=== PATIENT | female | born 2000 | race Caucasian/White ===

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

== ENCOUNTER 2021-06-24 19:44 | Emergency (ER) | payer BC, OTHER ==
[2021-06-24 20:13] VITALS: TEMP 98.4
[2021-06-24] MEDS ORDERED: IBUPROFEN 600 MG TAB PO STA (20:45)
[2021-06-24] MEDS ORDERED: ACETAMINOPHEN TAB 325 MG TAB PO STA (20:45)
--- NOTE | 2021-06-24 21:01 | ED ---
Upper Extremity HPI - General Chief Complaint: Extremity Injury, Upper Stated Complaint: IHS-L finger injury Time Seen by Provider: 06/24/21 20:24 Source: patient, family Mode of arrival: ambulatory Limitations: no limitations - History of Present Illness Initial Comments: 21 year-old female patient presents to the emergency department for evaluation of left little finger injury. States she was at work when a resident grabbed her finger and twisted it. States she has had limited range of motion, pain, and burning in the finger since. Denies taking anything for pain. Denies previous injury to this finger. Denies any chance of . - Related Data Home Medications Medication Instructions Recorded Confirmed Albuterol Inhaler [Ventolin Hfa 2 puff INHALATION RT-QID PRN 01/15/20 01/17/20 Inhaler] Previous Rx's Medication Instructions Recorded Acetaminophen Tab [Tylenol] 650 mg PO Q4HR PRN tab 01/20/20 Ibuprofen [Motrin] 600 mg PO TID PRN tab 01/20/20 Vortioxetine Hydrobromide 10 mg PO DAILY 30 Days tablet 01/20/20 [Trintellix] busPIRone HCL [Buspar] 7.5 mg PO BID 30 Days tab 01/20/20 Albuterol Sulfate [Proair Hfa] 1 - 2 puff INHALATION Q4HR PRN #1 11/09/20 inhaler Dexamethasone 6 mg PO DAILY #5 tablet 11/09/20 Ibuprofen [Motrin] 600 mg PO Q8HR PRN #30 tab 06/24/21 Allergies Allergy/AdvReac Type Severity Reaction Status Date / Time latex Allergy Rash/Hives Verified 06/24/21 20:12 Review of Systems ROS Statement: Those systems with pertinent positive or pertinent negative responses have been documented in the HPI. ROS Other: All systems not noted in ROS Statement are negative. Past Medical History Past Medical History: Asthma History of Any Multi-Drug Resistant Organisms: None Reported Past Surgical History: Adenoidectomy, Tonsillectomy Additional Past Surgical History / Comment(s): Kanine teeth exposure for braces, IUD, Past Anesthesia/Blood Transfusion Reactions: No Reported Reaction Past Psychological History: Anxiety, Depression Smoking Status: Never smoker Past Alcohol Use History: None Reported Past Drug Use History: None Reported - Past Family History Mother Family Medical History: No Reported History Father Additional Family Medical History / Comment(s): colon cancer General Exam Limitations: no limitations General appearance: alert, in no apparent distress, other (This is a well- developed, well-nourished adult female patient in no acute distress. ) Respiratory exam: Present: normal lung sounds bilaterally. Absent: respiratory distress, wheezes, rales, rhonchi, stridor Cardiovascular Exam: Present: regular rate, normal rhythm, normal heart sounds. Absent: systolic murmur, diastolic murmur, rubs, gallop, clicks Neurological exam: Present: alert, oriented X3, CN II-XII intact Psychiatric exam: Present: normal affect, normal mood Skin exam: Present: warm, dry, intact, normal color. Absent: rash Course Vital Signs 06/24/21 06/24/21 20:08 22:00 Temperature 98.4 F Pulse Rate 90 88 Respiratory 22 16 Rate Blood Pressure 114/80 120/72 O2 Sat by Pulse 98 98 Oximetry Medical Decision Making - Medical Decision Making 21-year-old female patient presents to the emergency department today for evaluation of injury to the left little finger. 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 X-ray was obtained and was negative. Did discuss sprain as a cause for her symptoms are related yamilet tape. She is instructed to decrease use of the finger for the next week. Given ibuprofen for pain. Return parameters were discussed in detail. She verbalizes understanding and agrees with this plan. My attending is Dr. Salas. - Radiology Data Radiology results: report reviewed, image reviewed X-ray of the left little finger was obtained. Report was reviewed in its entirety. Impression by Dr. Kumar shows no acute fracture dislocation the left hand fifth digit. Disposition Clinical Impression: Sprain of left little finger Disposition: HOME SELF-CARE Condition: Good Instructions (If sedation given, give patient instructions): Finger Sprain (ED) Additional Instructions: Rest, ice, elevate the finger. Limit use of the left hand for one week. Take tylenol and motrin for pain control. Follow up with primary care physician for recheck in 1-2 days. Return for any new, worsening, or concerning symptoms. Prescriptions: Ibuprofen [Motrin] 600 mg PO Q8HR PRN #30 tab PRN Reason: Pain Is patient prescribed a controlled substance at d/c from ED?: No Referrals: Dean Hunt MD [Primary Care Provider] - 1-2 days Time of Disposition: 22:09
--- NOTE | 2021-06-24 21:39 | XR ---
EXAMINATION TYPE: XR finger LT DATE OF EXAM: 06/24/2021 CLINICAL HISTORY: Left little finger injury. TECHNIQUE: Frontal, lateral and oblique coned-down views of the fifth digit of the left hand are obt ained. COMPARISON: None FINDINGS: There is no acute fracture/dislocation evident. The joint spaces appear within normal encarnacion its. Normal osseous mineralization. The overlying soft tissue appears unremarkable. IMPRESSION: No acute fracture or dislocation in the left hand fifth digit.
[2021-06-24 22:08] VITALS: BP 120/72; PULSE 88; RESP 16
== END 2021-06-24 22:31 | disposition home or self-care (01) ==
LOC: EC 19:44
DX: S63.617A Unspecified sprain of left little finger, initial encounter (principal); J45.909 Unspecified asthma, uncomplicated; Z91.040 Latex allergy status; W50.2XXA Accidental twist by another person, initial encounter; Y92.89 Other specified places as the place of occurrence of the external cause; Y99.0 Civilian activity done for income or pay
CPT/HCPCS: 99283

== ENCOUNTER → 2021-07-06 | Outpatient (CLI) | payer OTHER ==
--- NOTE | 2021-07-06 10:41 | XR ---
EXAMINATION TYPE: XR finger LT DATE OF EXAM: 07/06/2021 COMPARISON: NONE HISTORY: Pain TECHNIQUE: Three views are submitted. FINDINGS: The osseous structures are intact. The joint spaces are preserved and there is no acute fracture or dislocation. IMPRESSION: 1. No definite acute fracture or dislocation if symptoms persist, follow-up study in 7 to 10 days wo uld be suggested
== END | disposition home or self-care (01) ==
LOC: RADXRMAIN 10:06
PROVIDERS: ATTEND Emergency Medicine
DX: M79.645 Pain in left finger(s) (principal)

== ENCOUNTER → 2021-07-26 | Outpatient (CLI) | payer BC | END | disposition home or self-care (01) | LOC: RADECHMAIN 11:27 | PROVIDERS: ATTEND Family Medicine | DX: R07.9 Chest pain, unspecified (principal) | CPT/HCPCS: 93306 ==

== ENCOUNTER 2021-08-19 16:17 | Emergency (ER) | payer OTHER, BC ==
[2021-08-19 16:46] VITALS: BP 125/81; PULSE 100; RESP 20; TEMP 97.9
[2021-08-19] MEDS ORDERED: KETOROLAC 15 MG/ML 1 ML VIAL IM STA (17:10)
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
--- NOTE | 2021-08-19 18:28 | XR ---
PROCEDURE: XR forearm RT - 2V DATE AND TIME: 08/19/2021 5:40 PM CLINICAL INDICATION: PHH; pain TECHNIQUE: Department protocol COMPARISON: None FINDINGS: There is no fracture or malalignment. The soft tissues are unremarkable. IMPRESSION: NO ACUTE PROCESS.
--- NOTE | 2021-08-19 18:29 | XR ---
PROCEDURE: XR wrist complete RT - 4V DATE AND TIME: 08/19/2021 5:40 PM CLINICAL INDICATION: PHH; pain TECHNIQUE: Department protocol COMPARISON: 2001 FINDINGS: There is no fracture or malalignment. The soft tissues are unremarkable. IMPRESSION: NO ACUTE PROCESS.
== END 2021-08-19 19:02 | disposition home or self-care (01) ==
LOC: EC 16:17
DX: M25.531 Pain in right wrist (principal); V43.52XA Car driver injured in collision with other type car in traffic accident, initial encounter; J45.909 Unspecified asthma, uncomplicated; Z91.040 Latex allergy status; Y92.89 Other specified places as the place of occurrence of the external cause
CPT/HCPCS: 73090; 73110; 99284; 96372; J1885

== ENCOUNTER 2021-08-22 01:22 | Emergency (ER) | payer BC ==
[2021-08-22 01:35] VITALS: TEMP 98.6
--- NOTE | 2021-08-22 02:05 | XR ---
EXAMINATION TYPE: XR chest 2V DATE OF EXAM: 08/22/2021 COMPARISON: NONE HISTORY: Cough TECHNIQUE: 2 views FINDINGS: Heart and mediastinum are normal. Lungs are clear. Diaphragm is normal. Bony thorax is inta ct. IMPRESSION: Normal chest.
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
[2021-08-22 03:30] VITALS: BP 128/88; PULSE 89; RESP 16
== END 2021-08-22 03:29 | disposition home or self-care (01) ==
LOC: EC 01:22
DX: R04.2 Hemoptysis (principal); J45.909 Unspecified asthma, uncomplicated; Z91.040 Latex allergy status
CPT/HCPCS: 71046; 99283

== ENCOUNTER 2022-10-20 11:48 | Emergency (ER) | payer BC ==
[2022-10-20 12:19] VITALS: TEMP 98.1
[2022-10-20] MEDS ORDERED: SODIUM CHLORIDE 0.9% 1,000 ML IV STA (12:48)
[2022-10-20] MEDS ORDERED: PANTOPRAZOLE 40 MG/10 ML VIAL IVP STA (12:56)
[2022-10-20] MEDS ORDERED: ONDANSETRON 4 MG/2 ML VIAL IVP STA (12:56)
--- NOTE | 2022-10-20 13:00 | ED ---
General Adult HPI - General Chief complaint: Syncope Stated complaint: Vomiting,Syncope Time Seen by Provider: 10/20/22 12:26 Source: patient, RN notes reviewed, old records reviewed Mode of arrival: ambulatory Limitations: no limitations - History of Present Illness Initial comments: Patient is a 22-year-old female with past medical history that is unremarkable presents emergency Department complaining of multiple syncopal episodes at home this morning. Patient states that she drank some form of Gatorade this morning which then triggered having an "upset stomach" causing her to have multiple episodes of nonbilious normally emesis. She passed out 2 separate occasions this morning. Both shortly after blood episodes of emesis. States she felt dizzy beforehand, with tunnel vision. She was sitting down and would lay herself down on the bathroom floor and passed out. She is unknown how long she was passed out for. Denies any chest pain or shortness breath. Endorses some epigastric abdominal discomfort. Denies any current nausea. He presents today due to the multiple syncopal episodes. States that has not occurred previously. Physical history nosebleeds and had one earlier today as well. Denies any known history of clotting disorder. Has no other acute complaints at this time. Presents for further evaluation at this time. Denies any urinary complaints. Denies any vaginal discharge or bleeding. Does endorse an episode of nonbloody diarrhea. No known sick contacts. No fevers, no cough. - Related Data Home Medications Medication Instructions Recorded Confirmed levonorgestreL [Kyleena (IUD)] 1 implant VAGINAL [id number] 08/19/21 08/19/21 Previous Rx's Medication Instructions Recorded Ibuprofen [Motrin] 600 mg PO Q8HR PRN #30 tab 06/24/21 Ibuprofen [Motrin] 600 mg PO Q8HR PRN #30 tab 08/19/21 Ondansetron Odt [Zofran Odt] 4 mg PO Q8HR PRN 3 Days #9 tab 10/20/22 Allergies Allergy/AdvReac Type Severity Reaction Status Date / Time latex Allergy Rash/Hives Verified 10/20/22 12:19 Review of Systems ROS Statement: Those systems with pertinent positive or pertinent negative responses have been documented in the HPI. Review of Systems: CONST: Denies fever EYES: Denies blurry vision ENT: Denies nasal congestion C/V: Denies Chest pain RESP: Denies shortness of breath GI: Endorses abdominal pain : Denies dysuria SKIN: Denies rash. MSK: Denies joint pain. NEURO: Denies headache ROS Other: All systems not noted in ROS Statement are negative. Past Medical History Past Medical History: Asthma History of Any Multi-Drug Resistant Organisms: None Reported Past Surgical History: Adenoidectomy, Tonsillectomy Additional Past Surgical History / Comment(s): [place] teeth exposure for braces, IUD, Past Anesthesia/Blood Transfusion Reactions: No Reported Reaction Past Psychological History: Anxiety, Depression Smoking Status: Never smoker Past Alcohol Use History: None Reported Past Drug Use History: None Reported - Past Family History Mother Family Medical History: No Reported History Father Additional Family Medical History / Comment(s): colon cancer General Exam - General Exam Comments Initial Comments: General: Appears in no acute distress. HEAD: Normal with no signs of head trauma. Lehman sign. Negative raccoon eyes. EYES: PERRLA, EOMI, conjunctiva normal, no discharge. Pupils are 3 mm and equal bilaterally. ENT: Hearing grossly intact, normal oropharynx. Dry mucous membranes. RESPIRATORY: Clear breath sounds bilaterally. No wheezes, rales, or rhonchi. C/V: Regular rate and rhythm. S1 and S2 auscultated, no edema, peripheral pulses 2+ and intact throughout ABD: Abdomen is soft, nondistended. Mild tenderness to palpation epigastric. No guarding. No rebound tenderness. No peritoneal signs. EXT: Normal range of motion, no obvious deformity SKIN: No rashes or lesions observed on exposed skin. NEURO: Alert and oriented x 4. Cranial nerves II-XII intact. No focal sensory or strength deficits. GCS of 15. No focal deficits. Able to ambulate. Limitations: no limitations Course Vital Signs 10/20/22 10/20/22 10/20/22 12:16 13:57 15:24 Temperature 98.1 F Pulse Rate 100 90 94 Respiratory 20 16 18 Rate Blood Pressure 120/81 126/80 116/70 O2 Sat by Pulse 99 99 99 Oximetry Medical Decision Making - Medical Decision Making Was pt. sent in by a medical professional or institution (, PA, PHYSICIAN RELATIONS SPECIALIST, urgent care, hospital, or longterm...) When possible be specific @ -No Did you speak to anyone other than the patient for history (EMS, parent, family, police, friend...)? What history was obtained from this source @ -No Did you review nursing and triage notes (agree or disagree)? Why? @ -I reviewed and agree with nursing and triage notes Were old charts reviewed (outside hosp., previous admission, EMS record, old EKG, old radiological studies, urgent care reports/EKG's, longterm records)? Report findings @ -No old charts were reviewed Differential Diagnosis (chest pain, altered mental status, abdominal pain women, abdominal pain men, vaginal bleeding, weakness, fever, dyspnea, syncope, headache, dizziness, GI bleed, back pain, seizure, CVA, palpatations, mental health, musculoskeletal)? @ -Differential Syncope: Valvular disease, hypertrophic cardiomyopathy, pulmonary embolism, tamponade, tachycardia, bradycardia, [place], hypovolemia, hemorrhage, dissection, anemia, intracranial hemorrhage, seizure, hypoglycemia, carbon monoxide poisoning, this is not meant to be an all-inclusive list. EKG interpreted by me (3pts min.). @ -As above X-rays interpreted by me (1pt min.). @ -Chest x-ray reveals no obvious acute cardio pulmonary process. CT interpreted by me (1pt min.). @ -None done U/S interpreted by me (1pt. min.). @ -None done What testing was considered but not performed or refused? (CT, X-rays, U/S, labs)? Why? @ -None What meds were considered but not given or refused? Why? @ -None Did you discuss the management of the patient with other professionals (amanda ricci i.regino De León, PA, PHYSICIAN RELATIONS SPECIALIST, lab, RT, psych nurse, social insurance adviser, academic hospitalist, teacher, parcel post officer, home health care case manager)? Give summary @ -No Was smoking cessation discussed for >3mins.? @ -No Was critical care preformed (if so, how long)? @ -No Were there social determinants of health that impacted care today? How? (Homelessness, low income, unemployed, alcoholism, drug addiction, transportation, low edu. Level, literacy, decrease access to med. care, [facility], rehab)? @ -No Was there de-escalation of care discussed even if they declined (Discuss DNR or withdrawal of care, Hospice)? DNR status @ -No What co-morbidities impacted this encounter? (DM, HTN, Smoking, COPD, CAD, Cancer, CVA, ARF, Chemo, Hep., AIDS, mental health diagnosis, sleep apnea, morbid obesity)? @ -None Was patient admitted / discharged? Hospital course, mention meds given and route, prescriptions, significant lab abnormalities, going to OR and other pertinent info. @ -Based on the patient's presentation and physical exam, there is concern for syncopal episodes likely secondary to her nausea and vomiting episodes but cannot rule out other etiology at this time. Currently has no acute complaints other than mild epigastric abdominal pain. If that her baseline mental status. Did discuss obtaining labs as well as a chest x-ray and EKG and screening d- dimer. She was in agreement this plan. We will also obtain abdominal laboratory studies, signs. She'll be symptomatically treated with 2 L IV fluids as well as IV Zofran and Protonix. Vital signs within acceptable limits. Tyrel garcia was in agreement with this plan. EKG shows no signs of acute ischemia. Chest x-ray unremarkable. Laboratory studies are remarkable for a d-dimer that is undetectable. Patient is not . Patient's Covid, flu, RSV negative. Alleged lites are within acceptable limits. No other acute findings on labs. On reevaluation and patient is feeling improved. She is tolerating oral intake. His no other acute complaints at this time. She would like to go home. I believe this is reasonable. She will be discharged home at this time. Strict return precautions discussed. She'll be given a prescription for Zofran ODT. We discussed her workup. I will provide the patient with a prescription for Zofran ODT. I instructed the patient to follow up with their PCP in the next 1-3 days. I explained that the patient should return to the emergency department if they experience any worsening symptoms. Strict return precautions were discussed with the patient. The patient expressed understanding of these instructions. I answered all questions that the patient had. The patient was discharged home in good condition with their prescriptions and follow up information. Undiagnosed new problem with uncertain prognosis? @ -No Drug Therapy requiring intensive monitoring for toxicity (Heparin, Nitro, Insulin, Cardizem)? @ -No Were any procedures done? @ -No Diagnosis/symptom? @ -Nausea and vomiting Acute, or Chronic, or Acute on Chronic? @ -Acute Uncomplicated (without systemic symptoms) or Complicated (systemic symptoms)? @ -uncomplicated Side effects of treatment? @ -No Exacerbation, Progression, or Severe Exacerbation? @ -No Poses a threat to life or bodily function? How? (Chest pain, [place], [place], pneumonia, PE, COPD, DKA, ARF, appy, cholecystitis, CVA, Diverticulitis, Homicidal, Suicidal, threat to staff... and all critical care pts) @ -No Diagnosis/symptom? @ -Syncope Acute, or Chronic, or Acute on Chronic? @ -Acute Uncomplicated (without systemic symptoms) or Complicated (systemic symptoms)? @ -Uncomplicated Side effects of treatment? @ -none Exacerbation, Progression, or Severe Exacerbation] @ -no Poses a threat to life or bodily function? @ -no - Lab Data Result diagrams: 10/20/22 13:56 10/20/22 13:56 Lab Results 10/20/22 10/20/22 10/20/22 Range/Units 13:56 13:56 13:56 WBC 7.7 (3.8-10.6) k/uL RBC 4.16 (3.80-5.40) m/uL Hgb 13.4 (11.4-16.0) gm/dL Hct 38.4 (34.0-46.0) % MCV 92.4 (80.0-100.0) fL MCH 32.3 (25.0-35.0) pg MCHC 34.9 (31.0-37.0) g/dL RDW 12.1 (11.5-15.5) % Plt Count 217 (150-450) k/uL MPV 7.6 Neutrophils % 71 % Lymphocytes % 23 % Monocytes % 4 % Eosinophils % 1 % Basophils % 0 % Neutrophils # 5.5 (1.3-7.7) k/uL Lymphocytes # 1.8 (1.0-4.8) k/uL Monocytes # 0.3 (0-1.0) k/uL Eosinophils # 0.1 (0-0.7) k/uL Basophils # 0.0 (0-0.2) k/uL PT 10.6 (9.0-12.0) sec INR 1.0 (<1.2) APTT 27.1 (22.0-30.0) sec D-Dimer <0.17 (<0.60) mg/L FEU Sodium (137-145) mmol/L Potassium (3.5-5.1) mmol/L Chloride (98-107) mmol/L Carbon Dioxide (22-30) mmol/L Anion Gap mmol/L BUN (7-17) mg/dL Creatinine (0.52-1.04) mg/dL Est GFR (CKD-EPI)AfAm (>60 ml/min/1.73 sqM) Est GFR (CKD-EPI)NonAf (>60 ml/min/1.73 sqM) Glucose (74-99) mg/dL Calcium (8.4-10.2) mg/dL Magnesium (1.6-2.3) mg/dL Total Bilirubin (0.2-1.3) mg/dL AST (14-36) U/L ALT (4-34) U/L Alkaline Phosphatase (38-126) U/L Total Protein (6.3-8.2) g/dL Albumin (3.5-5.0) g/dL Lipase (23-300) U/L HCG, Qual Urine Color Yellow Urine Appearance Cloudy H (Clear) Urine pH 7.0 (5.0-8.0) Ur Specific [place] 1.022 (1.001-1.035) Urine Protein 1+ H (Negative) Urine Glucose (UA) Negative (Negative) Urine Ketones Negative (Negative) Urine Blood Negative (Negative) Urine Nitrite Negative (Negative) Urine Bilirubin Negative (Negative) Urine Urobilinogen <2.0 (<2.0) mg/dL Ur Leukocyte Esterase Negative (Negative) Urine RBC 1 (0-5) /hpf Urine WBC 1 (0-5) /hpf Ur Squamous Epith Cells 8 H (0-4) /hpf Urine Mucus Rare H (None) /hpf Influenza Type A (PCR) (Not Detectd) Influenza Type B (PCR) (Not Detectd) RSV (PCR) (Not Detectd) SARS-CoV-2 (PCR) (Not Detectd) 10/20/22 10/20/22 Range/Units 13:56 13:56 WBC (3.8-10.6) k/uL RBC (3.80-5.40) m/uL Hgb (11.4-16.0) gm/dL Hct (34.0-46.0) % MCV (80.0-100.0) fL MCH (25.0-35.0) pg MCHC (31.0-37.0) g/dL RDW (11.5-15.5) % Plt Count (150-450) k/uL MPV Neutrophils % % Lymphocytes % % Monocytes % % Eosinophils % % Basophils % % Neutrophils # (1.3-7.7) k/uL Lymphocytes # (1.0-4.8) k/uL Monocytes # (0-1.0) k/uL Eosinophils # (0-0.7) k/uL Basophils # (0-0.2) k/uL PT (9.0-12.0) sec INR (<1.2) APTT (22.0-30.0) sec D-Dimer (<0.60) mg/L FEU Sodium 138 (137-145) mmol/L Potassium 3.9 (3.5-5.1) mmol/L Chloride 102 (98-107) mmol/L Carbon Dioxide 29 (22-30) mmol/L Anion Gap 7 mmol/L BUN 10 (7-17) mg/dL Creatinine 0.72 (0.52-1.04) mg/dL Est GFR (CKD-EPI)AfAm >90 (>60 ml/min/1.73 sqM) Est GFR (CKD-EPI)NonAf >90 (>60 ml/min/1.73 sqM) Glucose 84 (74-99) mg/dL Calcium 9.1 (8.4-10.2) mg/dL Magnesium 1.8 (1.6-2.3) mg/dL Total Bilirubin 0.7 (0.2-1.3) mg/dL AST 22 (14-36) U/L ALT 15 (4-34) U/L Alkaline Phosphatase 65 (38-126) U/L Total Protein 7.1 (6.3-8.2) g/dL Albumin 4.5 (3.5-5.0) g/dL Lipase 49 (23-300) U/L HCG, Qual Not Detected Urine Color Urine Appearance (Clear) Urine pH (5.0-8.0) Ur Specific [place] (1.001-1.035) Urine Protein (Negative) Urine Glucose (UA) (Negative) Urine Ketones (Negative) Urine Blood (Negative) Urine Nitrite (Negative) Urine Bilirubin (Negative) Urine Urobilinogen (<2.0) mg/dL Ur Leukocyte Esterase (Negative) Urine RBC (0-5) /hpf Urine WBC (0-5) /hpf Ur Squamous Epith Cells (0-4) /hpf Urine Mucus (None) /hpf Influenza Type A (PCR) Not Detected (Not Detectd) Influenza Type B (PCR) Not Detected (Not Detectd) RSV (PCR) Not Detected (Not Detectd) SARS-CoV-2 (PCR) Not Detected (Not Detectd) - EKG Data -: EKG Interpreted by Me EKG Comments: 12-lead Electrocardiogram Interpretation Note EKG was reviewed and interpreted by myself. 12-lead ECG performed at 1408 is interpreted by me as revealing normal sinus rhythm at a rate of 71 beats per minute. [place] is normal. ND interval is 153 ms, QRS duration is 88 ms, QTc is 404 ms.. Isolated T-wave inversion in lead V2. No reciprocal changes. No other acute ST segment T-wave abnormalities to suggest acute ischemia.. R wave progression across the precordium was satisfactory. By my interpretation this EKG is non-diagnostic for acute ischemia. Disposition Clinical Impression: Syncope, Nausea and vomiting Disposition: HOME SELF-CARE Condition: Good Instructions (If sedation given, give patient instructions): Acute Nausea and Vomiting (ED) Prescriptions: Ondansetron Odt [Zofran Odt] 4 mg PO Q8HR PRN 3 Days #9 tab PRN Reason: Nausea Is patient prescribed a controlled substance at d/c from ED?: No Referrals: Dean Hunt MD [Primary Care Provider] - 1-2 days Time of Disposition: 14:55
[2022-10-20 14:07] LABS: Basophils % (A) 0 %; Eosinophils # (A) 0.1 k/uL (0-0.7); Eosinophils % (A) 1 %; HCT 38.4 % (34.0-46.0); HGB 13.4 gm/dL (11.4-16.0); Lymphocytes # (A) 1.8 k/uL (1.0-4.8); Lymphocytes % (A) 23 %; MCH 32.3 pg (25.0-35.0); MCHC 34.9 g/dL (31.0-37.0); MCV 92.4 fL (80.0-100.0); Mean Platelet Volume 7.6; Monocytes # (A) 0.3 k/uL (0-1.0); Monocytes % (A) 4 %; Neutrophils # (A) 5.5 k/uL (1.3-7.7); Neutrophils % (A) 71 %; Platelet Count 217 k/uL (150-450); RBC 4.16 m/uL (3.80-5.40); RDW 12.1 % (11.5-15.5); WBC 7.7 k/uL (3.8-10.6)
[2022-10-20 14:08] LABS: Appearance,Urine Cloudy (Clear); Bilirubin,Urine Negative (Negative); Blood,Urine Negative (Negative); Color,Urine Yellow; Glucose,Urine (UA) Negative (Negative); Ketones,Urine Negative (Negative); Leukocyte Esterase,Urine Negative (Negative); Mucus,Urine Rare /hpf; Nitrite,Urine Negative (Negative); Protein,Urine 1+ (Negative); RBC,Urine 1 /hpf (0-5); Specific Gravity,Urine 1.022 (1.001-1.035); Squamous Epithelial Cell,Urine 8 /hpf (0-4); Urobilinogen,Urine <2.0 mg/dL (<2.0); WBC,Urine 1 /hpf (0-5)
[2022-10-20 14:19] LABS: ALT 15 U/L (4-34); AST 22 U/L (14-36); African American GFR (CKD) >90 (>60 ml/min/1.73 sqM); Albumin 4.5 g/dL (3.5-5.0); Alkaline Phosphatase 65 U/L (38-126); Anion Gap 7 mmol/L; Blood Urea Nitrogen 10 mg/dL (7-17); Calcium 9.1 mg/dL (8.4-10.2); Carbon Dioxide 29 mmol/L (22-30); Chloride 102 mmol/L (98-107); Glucose 84 mg/dL (74-99); HCG,Qualitative Serum Not Detected; Lipase 49 U/L (23-300); Magnesium 1.8 mg/dL (1.6-2.3); Non-African American GFR(CKD) >90 (>60 ml/min/1.73 sqM); Potassium 3.9 mmol/L (3.5-5.1); Sodium 138 mmol/L (137-145); Total Bilirubin 0.7 mg/dL (0.2-1.3); Total Protein 7.1 g/dL (6.3-8.2)
[2022-10-20 14:22] LABS: Partial Thromboplastin Time 27.1 sec (22.0-30.0); Prothrombin Time 10.6 sec (9.0-12.0)
--- NOTE | 2022-10-20 14:44 | XR ---
EXAMINATION TYPE: XR chest 1V portable DATE OF EXAM: 10/20/2022 COMPARISON: 08/22/2021 HISTORY: Syncope TECHNIQUE: Single frontal view of the chest is obtained. FINDINGS: There is no focal air space opacity, pleural effusion, or pneumothorax seen. The cardiac silhouette size is within normal limits. The osseous structures are intact. IMPRESSION: No acute process.
[2022-10-20 15:26] VITALS: BP 116/70; PULSE 94; RESP 18
== END 2022-10-20 15:49 | disposition home or self-care (01) ==
LOC: EC 11:48
DX: R55 Syncope and collapse (principal); R11.2 Nausea with vomiting, unspecified; J45.909 Unspecified asthma, uncomplicated; Z20.822 Contact with and (suspected) exposure to COVID-19; Z91.040 Latex allergy status; Z90.89 Acquired absence of other organs
CPT/HCPCS: 36415; 93005; 85379; 80053; 83690; 83735; 85025; 85610; 85730; 81001; 84703; 87636; 71045; 99284; 96374; 96375; 96361; J2405; C9113

== ENCOUNTER 2023-05-13 12:09 | Emergency (ER) | payer BC, OTHER ==
[2023-05-13] MEDS ORDERED: SODIUM CHLORIDE 0.9% 2,000 ML IV STA (12:30)
[2023-05-13] MEDS ORDERED: PYRIDOXINE 100 MG/ML 1 ML VIAL IVP ONE (12:31)
[2023-05-13] MEDS ORDERED: ONDANSETRON 4 MG/2 ML VIAL IVP STA (12:31)
--- NOTE | 2023-05-13 12:40 | ED ---
Nausea/Vomiting/Diarrhea HPI - General Chief complaint: Nausea/Vomiting/Diarrhea Stated complaint: fever Time Seen by Provider: 05/13/23 12:22 Source: patient, RN notes reviewed Mode of arrival: ambulatory Limitations: no limitations - History of Present Illness Initial comments: This is a 22-year-old female who presents to the emergency department for nausea and vomiting in . Patient is approximately 9 weeks and . She is managed by Dr. Castillo, DERRICK BARGE OPERATOR. States that she's had ongoing problems with nausea and vomiting over the last 2 weeks. She's been evaluated here a few times and has not had substantial relief with medication. She was treated with Reglan in the emergency department last time, and states that this made her too antsy. She was discharged with vitamin B6, Unisom, and Phenergan, also with little to no relief in symptoms. She is unable to keep anything down at this point. Denies any abdominal pain or vaginal bleeding. MD complaint: nausea, vomiting - Related Data Home Medications Medication Instructions Recorded Confirmed Albuterol Inhaler [Ventolin Hfa 1 - 2 puff INHALATION RT-Q6H PRN 05/05/23 05/05/23 Inhaler] Ogl-Pvgi-Etysq Acid 1 cap PO DAILY 05/05/23 05/05/23 [-U Capsule] Previous Rx's Medication Instructions Recorded Cephalexin [Keflex] 500 mg PO Q8HR #12 cap 05/05/23 Pyridoxine [Vitamin B-6] 25 mg PO Q8HR #60 tablet 05/05/23 Doxylamine Succinate [Unisom] 12.5 mg PO Q8HR #60 tablet 05/06/23 Promethazine [Phenergan] 25 mg PO Q4HR PRN #30 tablet 05/06/23 Prochlorperazine [Compazine] 10 mg PO Q6H PRN #30 tab 05/13/23 Allergies Allergy/AdvReac Type Severity Reaction Status Date / Time adhesive tape Allergy Unknown Verified 05/13/23 12:14 Review of Systems ROS Statement: Those systems with pertinent positive or pertinent negative responses have been documented in the HPI. ROS Other: All systems not noted in ROS Statement are negative. Past Medical History Past Medical History: Asthma History of Any Multi-Drug Resistant Organisms: None Reported Past Surgical History: Adenoidectomy, Tonsillectomy Additional Past Surgical History / Comment(s): [place] teeth exposure for braces, IUD, Past Anesthesia/Blood Transfusion Reactions: No Reported Reaction Past Psychological History: Anxiety, Depression Smoking Status: Vaper Past Alcohol Use History: None Reported Past Drug Use History: None Reported - Past Family History Mother Family Medical History: No Reported History Father Additional Family Medical History / Comment(s): colon cancer General Exam Limitations: no limitations General appearance: alert, in no apparent distress Head exam: Present: atraumatic, normocephalic, normal inspection Respiratory exam: Present: normal lung sounds bilaterally. Absent: respiratory distress, wheezes, rales, rhonchi, stridor Cardiovascular Exam: Present: regular rate, normal rhythm, normal heart sounds. Absent: systolic murmur, diastolic murmur, rubs, gallop, clicks Neurological exam: Present: alert, oriented X3, CN II-XII intact Psychiatric exam: Present: normal affect, normal mood Skin exam: Present: warm, dry, intact, normal color. Absent: rash Course Vital Signs 05/13/23 05/13/23 05/13/23 12:12 14:00 17:44 Temperature 98.1 F 98.2 F Pulse Rate 95 91 68 Respiratory 20 16 16 Rate Blood Pressure 107/73 108/64 105/56 O2 Sat by Pulse 99 100 98 Oximetry Medical Decision Making - Medical Decision Making This is a 22-year-old female who presents to the emergency department for nausea and vomiting in . Was pt. sent in by a medical professional or institution? @ -No Did you speak to anyone other than the patient for history? @ -No Did you review nursing and triage notes? @ -Yes, and I agree, it is accurate with regards to the patient's symptoms. Were old charts reviewed? @ -No Differential Diagnosis? @ -Differential Nausea and Vomiting: Gastroenteritis, cholecystitis, appendicitis, pancreatitis, migraine, benign positional vertigo, food borne illness, pyelonephritis, irritable bowel syndrome, influenza, Covid, GERD, incarcerated hernia, intestinal obstruction, this is not meant to be an all-inclusive list. EKG interpreted by me (3pts min.)? @ -Not obtained X-rays interpreted by me (1pt min.)? @ -Not obtained CT interpreted by me (1pt min.)? @ -Not obtained U/S interpreted by me (1pt. min.)? @ -Not obtained What testing was considered but not performed? (CT, X-rays, U/S, labs)? Why? @ -None What meds were considered but not given? Why? @ -None Did you discuss the management of the patient with other professionals? @ -No Did you reconcile home meds? @ -No Was smoking cessation discussed for >3mins.? @ -No Was critical care preformed (if so, how long)? @ -No Were there social determinants of health that impacted care today? How? (Ayana elessness, low income, unemployed, alcoholism, drug addiction, transportation, low edu. Level, literacy, decrease access to med. care, snf, rehab)? @ -No Was there de-escalation of care discussed even if they declined? (Discuss DNR or withdrawal of care, Hospice)? @ -No What co-morbidities impacted this encounter? (DM, HTN, Smoking, COPD, CAD, Cancer, CVA, Hep., AIDS, mental health diagnosis, sleep apnea, morbid obesity)? @ - Was patient admitted / discharged? @ -Discharged. Lab work obtained revealing no actionable findings. She was given a 2 L bolus of IV fluids and vitamin B6. She has not tolerated Reglan in the past and Benadryl has not been effective. Phenergan has also been ineffective for the patient. We subsequently proceeded with Zofran, and this was also not effective. She was then given a dose of Compazine, which is advised as the next option if other medications have previously failed. She felt like this managed her symptoms fairly well. She was tolerating oral intake without difficulty. At that point she requested discharge home. She was given a prescription for Compazine with dosing instructions reviewed. Advised she slowly advance her diet as tolerated and remain well-hydrated. She'll otherwise have close follow-up with her DERRICK BARGE OPERATOR. Undiagnosed new problem with uncertain prognosis? @ -None Drug Therapy requiring intensive monitoring for toxicity (Heparin, Nitro, Insulin, Cardizem)? @ -None Were any procedures done? @ -None Diagnosis/symptom? @ -Nausea and vomiting in Acute, or Chronic, or Acute on Chronic? @ -Acute Uncomplicated (without systemic symptoms) or Complicated (systemic symptoms)? @ -Uncomplicated Side effects of treatment? @ -None Exacerbation, Progression, or Severe Exacerbation] @ -Not applicable Poses a threat to life or bodily function? @ -If symptoms resume, this will impact her ability to function. Return precautions reviewed in depth, the patient is instructed to return to the emergency department with any new, worsening, or concerning symptoms. Patient verbalized understanding. This case was discussed in detail with the attending ED physician, Dr. De La Cruz. Presentation, findings, and treatment plan discussed in detail as well. - Lab Data Result diagrams: 05/13/23 12:55 05/13/23 12:55 Lab Results 05/13/23 05/13/23 05/13/23 Range/Units 12:55 12:55 12:55 WBC 8.6 (3.8-10.6) k/uL RBC 3.92 (3.80-5.40) m/uL Hgb 12.6 (11.4-16.0) gm/dL Hct 36.7 (34.0-46.0) % MCV 93.4 (80.0-100.0) fL MCH 32.2 (25.0-35.0) pg MCHC 34.5 (31.0-37.0) g/dL RDW 12.0 (11.5-15.5) % Plt Count 188 (150-450) k/uL MPV 8.2 Neutrophils % 85 % Lymphocytes % 10 % Monocytes % 4 % Eosinophils % 0 % Basophils % 0 % Neutrophils # 7.3 (1.3-7.7) k/uL Lymphocytes # 0.8 L (1.0-4.8) k/uL Monocytes # 0.4 (0-1.0) k/uL Eosinophils # 0.0 (0-0.7) k/uL Basophils # 0.0 (0-0.2) k/uL Sodium 134 L (137-145) mmol/L Potassium 3.8 (3.5-5.1) mmol/L Chloride 103 (98-107) mmol/L Carbon Dioxide 20 L (22-30) mmol/L Anion Gap 11 mmol/L BUN 9 (7-17) mg/dL Creatinine 0.50 L (0.52-1.04) mg/dL Est GFR (CKD-EPI)AfAm >90 (>60 ml/min/1.73 sqM) Est GFR (CKD-EPI)NonAf >90 (>60 ml/min/1.73 sqM) Glucose 82 (74-99) mg/dL Calcium 9.3 (8.4-10.2) mg/dL Total Bilirubin 1.0 (0.2-1.3) mg/dL AST 27 (14-36) U/L ALT 17 (4-34) U/L Alkaline Phosphatase 50 (38-126) U/L Total Protein 7.0 (6.3-8.2) g/dL Albumin 4.4 (3.5-5.0) g/dL HCG, Quant 679514.0 mIU/mL Urine Color Yellow Urine Appearance Cloudy H (Clear) Urine pH 6.0 (5.0-8.0) Ur Specific [place] 1.037 H (1.001-1.035) Urine Protein 1+ H (Negative) Urine Glucose (UA) Negative (Negative) Urine Ketones 4+ H (Negative) Urine Blood Negative (Negative) Urine Nitrite Negative (Negative) Urine Bilirubin 1+ H (Negative) Urine Urobilinogen 2.0 (<2.0) mg/dL Ur Leukocyte Esterase Negative (Negative) Urine RBC 3 (0-5) /hpf Urine WBC 1 (0-5) /hpf Ur Squamous Epith Cells 3 (0-4) /hpf Urine Bacteria Moderate H (None) /hpf Urine Mucus Many H (None) /hpf Disposition Clinical Impression: Nausea and vomiting during Disposition: HOME SELF-CARE Instructions (If sedation given, give patient instructions): Nausea and Vomiting in (ED) Additional Instructions: Return to the emergency department with any new, worsening, or concerning symptoms. You can take the Compazine up to every 6 hours as needed for nausea and vomiting. Slowly advance your diet as tolerated and remain well-hydrated. Follow up with your DERRICK BARGE OPERATOR. Prescriptions: Prochlorperazine [Compazine] 10 mg PO Q6H PRN #30 tab PRN Reason: Nausea And Vomiting Is patient prescribed a controlled substance at d/c from ED?: No Referrals: Dean Hunt MD [Primary Care Provider] - 1-2 days
[2023-05-13 13:24] LABS: Basophils % (A) 0 %; Eosinophils % (A) 0 %; HCT 36.7 % (34.0-46.0); HGB 12.6 gm/dL (11.4-16.0); Lymphocytes # (A) 0.8 k/uL (1.0-4.8); Lymphocytes % (A) 10 %; MCH 32.2 pg (25.0-35.0); MCHC 34.5 g/dL (31.0-37.0); MCV 93.4 fL (80.0-100.0); Mean Platelet Volume 8.2; Monocytes # (A) 0.4 k/uL (0-1.0); Monocytes % (A) 4 %; Neutrophils # (A) 7.3 k/uL (1.3-7.7); Neutrophils % (A) 85 %; Platelet Count 188 k/uL (150-450); RBC 3.92 m/uL (3.80-5.40); WBC 8.6 k/uL (3.8-10.6)
[2023-05-13 13:38] LABS: ALT 17 U/L (4-34); AST 27 U/L (14-36); African American GFR (CKD) >90 (>60 ml/min/1.73 sqM); Albumin 4.4 g/dL (3.5-5.0); Alkaline Phosphatase 50 U/L (38-126); Anion Gap 11 mmol/L; Blood Urea Nitrogen 9 mg/dL (7-17); Calcium 9.3 mg/dL (8.4-10.2); Carbon Dioxide 20 mmol/L (22-30); Chloride 103 mmol/L (98-107); Glucose 82 mg/dL (74-99); Non-African American GFR(CKD) >90 (>60 ml/min/1.73 sqM); Potassium 3.8 mmol/L (3.5-5.1); Sodium 134 mmol/L (137-145)
[2023-05-13] MEDS ORDERED: PROCHLORPERAZINE INJ 10 MG/2 ML VIAL IVP STA (13:44)
[2023-05-13 13:50] LABS: Appearance,Urine Cloudy (Clear); Bacteria,Urine Moderate /hpf; Bilirubin,Urine 1+ (Negative); Blood,Urine Negative (Negative); Color,Urine Yellow; Glucose,Urine (UA) Negative (Negative); Leukocyte Esterase,Urine Negative (Negative); Mucus,Urine Many /hpf; Nitrite,Urine Negative (Negative); Protein,Urine 1+ (Negative); RBC,Urine 3 /hpf (0-5); Specific Gravity,Urine 1.037 (1.001-1.035); Squamous Epithelial Cell,Urine 3 /hpf (0-4); WBC,Urine 1 /hpf (0-5)
[2023-05-13 13:53] LABS: Ketones,Urine 4+ (Negative)
[2023-05-13 14:08] VITALS: RESP 16
[2023-05-13] MEDS ORDERED: FAMOTIDINE 20 MG/2 ML VIAL IV STA (15:01)
[2023-05-13] MEDS ORDERED: ONDANSETRON 4 MG ODT STARTER PACK 2 TAB BTL PO STA (17:22)
[2023-05-13 17:47] VITALS: BP 105/56; PULSE 68; TEMP 98.2
== END 2023-05-13 17:45 | disposition home or self-care (01) ==
LOC: EC 12:09
DX: O21.9 Vomiting of pregnancy, unspecified (principal); O99.511 Diseases of the respiratory system complicating pregnancy, first trimester; J45.909 Unspecified asthma, uncomplicated; O99.331 Smoking (tobacco) complicating pregnancy, first trimester; F17.290 Nicotine dependence, other tobacco product, uncomplicated; Z86.59 Personal history of other mental and behavioral disorders; Z3A.09 9 weeks gestation of pregnancy; Z91.09 Other allergy status, other than to drugs and biological substances
CPT/HCPCS: 36415; 80053; 85025; 81001; 84702; 99284; 96374; 96375 ×3; 96361 ×2; J0780; J3415; J2405; J3490; S0119

== ENCOUNTER 2023-05-18 18:12 | Emergency (ER) | payer BC, OTHER ==
[2023-05-18 18:29] VITALS: TEMP 97.7
[2023-05-18] MEDS ORDERED: SODIUM CHLORIDE 0.9% 500 ML 500 ML IV STA (21:54)
--- NOTE | 2023-05-18 21:55 | ED ---
Dizziness HPI - General Chief Complaint: Dizziness Stated Complaint: Dizzy/chest pain Time Seen by Provider: 05/18/23 21:38 Source: patient Mode of arrival: ambulatory Limitations: no limitations - History of Present Illness Initial Comments: This patient is 22-year-old woman who presents to have evaluation for feeling lightheaded and nauseated. She been having these symptoms intermittently for number days and had been seen here previously after she had some vomiting. The patient states that things have recurred earlier today. She called her gyne cologist's office and it was recommended that she be seen in emergency. MD Complaint: lightheadedness -: hour(s) Timing: intermittent Description: lightheadedness History of Same: No History of Trauma: No Severity: mild Worsens With: exertion Associated Symptoms: denies other symptoms - Related Data Home Medications Medication Instructions Recorded Confirmed Albuterol Inhaler [Ventolin Hfa 1 - 2 puff INHALATION RT-Q6H PRN 05/05/23 Inhaler] Yra-Craj-Dqkau Acid 1 cap PO DAILY 05/05/23 05/05/23 [-U Capsule] Previous Rx's Medication Instructions Recorded Cephalexin [Keflex] 500 mg PO Q8HR #12 cap 05/05/23 Pyridoxine [Vitamin B-6] 25 mg PO Q8HR #60 tablet 05/05/23 Doxylamine Succinate [Unisom] 12.5 mg PO Q8HR #60 tablet 05/06/23 Promethazine [Phenergan] 25 mg PO Q4HR PRN #30 tablet 05/06/23 Prochlorperazine [Compazine] 10 mg PO Q6H PRN #30 tab 05/13/23 Allergies Allergy/AdvReac Type Severity Reaction Status Date / Time adhesive tape Allergy Unknown Verified 06/01/23 23:06 Review of Systems ROS Statement: Those systems with pertinent positive or pertinent negative responses have been documented in the HPI. ROS Other: All systems not noted in ROS Statement are negative. Constitutional: Denies: fever, chills, weakness Respiratory: Denies: cough, dyspnea Cardiovascular: Reports: chest pain, palpitations. Denies: edema, syncope Gastrointestinal: Reports: nausea. Denies: abdominal pain, vomiting, diarrhea Genitourinary: Denies: dysuria, hematuria, discharge, abnormal menses Musculoskeletal: Denies: back pain Skin: Denies: rash Neurological: Denies: headache, weakness, numbness Past Medical History Past Medical History: Asthma History of Any Multi-Drug Resistant Organisms: None Reported Past Surgical History: Adenoidectomy, Tonsillectomy Additional Past Surgical History / Comment(s): [place] teeth exposure for braces, IUD, Past Anesthesia/Blood Transfusion Reactions: No Reported Reaction Past Psychological History: Anxiety, Depression Smoking Status: Vaper Past Alcohol Use History: None Reported Past Drug Use History: None Reported - Past Family History Mother Family Medical History: No Reported History Father Additional Family Medical History / Comment(s): colon cancer General Exam Limitations: no limitations General appearance: alert, in no apparent distress Head exam: Present: atraumatic, normocephalic Eye exam: Present: normal appearance. Absent: scleral icterus, conjunctival injection ENT exam: Present: normal oropharynx Neck exam: Present: normal inspection Respiratory exam: Present: normal lung sounds bilaterally. Absent: respiratory distress, wheezes, rales, rhonchi, stridor Cardiovascular Exam: Present: regular rate, normal rhythm, normal heart sounds. Absent: systolic murmur, diastolic murmur, rubs, gallop GI/Abdominal exam: Present: soft. Absent: distended, tenderness, guarding, rebound, rigid, mass Extremities exam: Present: normal inspection, normal capillary refill. Absent: pedal edema, calf tenderness Back exam: Present: normal inspection. Absent: CVA tenderness (R), CVA tenderness (L) Neurological exam: Present: alert Skin exam: Present: warm, dry, intact, normal color. Absent: rash Course Vital Signs 05/18/23 05/18/23 05/18/23 18:20 22:39 23:11 Temperature 97.7 F Pulse Rate 88 78 77 Respiratory 16 16 16 Rate Blood Pressure 103/62 99/56 101/68 O2 Sat by Pulse 100 98 100 Oximetry 05/18/23 05/19/23 23:14 00:34 Temperature Pulse Rate 86 89 Respiratory 23 14 Rate Blood Pressure 98/64 O2 Sat by Pulse 99 98 Oximetry EKG Findings - EKG Results: EKG: interpreted by ERMD, sinus rhythm (Rate 72 bpm), normal axis, normal QRS, normal ST/T, no acute changes Medical Decision Making - Medical Decision Making Was pt. sent in by a medical professional or institution (GEO De León, COURT OFFICER, urgent care, hospital, or care home...) When possible be specific @ -Patient and recommended to have evaluation by her clinic physician Did you speak to anyone other than the patient for history (EMS, parent, family, police, friend...)? What history was obtained from this source @ -[No] Did you review nursing and triage notes (agree or disagree)? Why? @ -[I reviewed and agree with nursing and triage notes] Were old charts reviewed (outside hosp., previous admission, EMS record, old EKG, old radiological studies, urgent care reports/EKG's, care home records)? Report findings @ -[No old charts were reviewed] Differential Diagnosis (chest pain, altered mental status, abdominal pain women, abdominal pain men, vaginal bleeding, weakness, fever, dyspnea, syncope, headache, dizziness, GI bleed, back pain, seizure, CVA, palpatations, mental health, musculoskeletal)? @ -[Differential Near Syncope: Valvular disease, hypertrophic cardiomyopathy, pulmonary embolism, tamponade, tachycardia, bradycardia, [place], hypovolemia, hemorrhage, dissection, anemia, intracranial hemorrhage, seizure, hypoglycemia, carbon monoxide poisoning, this is not meant to be an all-inclusive list. EKG interpreted by me (3pts min.). @ -[I interpreted As above] X-rays interpreted by me (1pt min.). @ -[None done] CT interpreted by me (1pt min.). @ -[None done] U/S interpreted by me (1pt. min.). @ -[None done] What testing was considered but not performed or refused? (CT, X-rays, U/S, labs)? Why? @ -[None] What meds were considered but not given or refused? Why? @ -[None] Did you discuss the management of the patient with other professionals (professionals i.e. GEO De León, COURT OFFICER, lab, RT, psych nurse, professor of social work, laser specialist, teacher, court officer, director of casework department)? Give summary @ -[No] Was smoking cessation discussed for >3mins.? @ -[No] Was critical care preformed (if so, how long)? @ -[No] Were there social determinants of health that impacted care today? How? (Homelessness, low income, unemployed, alcoholism, drug addiction, transportation, low edu. Level, literacy, decrease access to med. care, half-way, rehab)? @ -[No] Was there de-escalation of care discussed even if they declined (Discuss DNR or withdrawal of care, Hospice)? DNR status @ -[No] What co-morbidities impacted this encounter? (DM, HTN, Smoking, COPD, CAD, Cancer, CVA, ARF, Chemo, Hep., AIDS, mental health diagnosis, sleep apnea, morbid obesity)? @ -[None] Was patient admitted / discharged? Hospital course, mention meds given and route, prescriptions, significant lab abnormalities, going to OR and other pertinent info. @ -[Patient is 22-year-old woman here to have evaluation of lightheadedness. The physical exam and the workup are essentially normal. The patient's feeling better. Emergency department and we discussed the appropriate further care and follow-up as well as return parameters. Undiagnosed new problem with uncertain prognosis? @ -[No] Drug Therapy requiring intensive monitoring for toxicity (Heparin, Nitro, Insulin, Cardizem)? @ -[No] Were any procedures done? @ -[No] Diagnosis/symptom? @ -[Acute lightheadedness Acute, or Chronic, or Acute on Chronic? @ -[Acute Uncomplicated (without systemic symptoms) or Complicated (systemic symptoms)? @ -[Uncomplicated Side effects of treatment? @ -[No] Exacerbation, Progression, or Severe Exacerbation? @ -[No] Poses a threat to life or bodily function? How? (Chest pain, [place], [place], pneumonia, PE, COPD, DKA, ARF, appy, cholecystitis, CVA, Diverticulitis, Homicidal, Suicidal, threat to staff... and all critical care pts) @ -[No] - Lab Data Result diagrams: 05/18/23 22:44 Lab Results 05/18/23 05/18/23 05/18/23 Range/Units 22:44 22:44 22:44 Sodium 134 L (137-145) mmol/L Potassium 4.3 (3.5-5.1) mmol/L Chloride 101 (98-107) mmol/L Carbon Dioxide 21 L (22-30) mmol/L Anion Gap 12 mmol/L BUN 5 L (7-17) mg/dL Creatinine 0.44 L (0.52-1.04) mg/dL Est GFR (CKD-EPI)AfAm >90 (>60 ml/min/1.73 sqM) Est GFR (CKD-EPI)NonAf >90 (>60 ml/min/1.73 sqM) Glucose 87 (74-99) mg/dL Plasma Lactic Acid Mark 1.2 (0.7-2.0) mmol/L Calcium 9.5 (8.4-10.2) mg/dL Total Bilirubin 0.8 (0.2-1.3) mg/dL AST 29 (14-36) U/L ALT 15 (4-34) U/L Alkaline Phosphatase 49 (38-126) U/L Total Protein 7.4 (6.3-8.2) g/dL Albumin 4.5 (3.5-5.0) g/dL Urine Color Colorless Urine Appearance Clear (Clear) Urine pH 6.0 (5.0-8.0) Ur Specific [place] 1.004 (1.001-1.035) Urine Protein Negative (Negative) Urine Glucose (UA) Negative (Negative) Urine Ketones Negative (Negative) Urine Blood Negative (Negative) Urine Nitrite Negative (Negative) Urine Bilirubin Negative (Negative) Urine Urobilinogen <2.0 (<2.0) mg/dL Ur Leukocyte Esterase Negative (Negative) Disposition Clinical Impression: Lightheadedness Disposition: HOME SELF-CARE Condition: Good Instructions (If sedation given, give patient instructions): Dizziness (ED) Is patient prescribed a controlled substance at d/c from ED?: No Referrals: Dean Hunt MD [Primary Care Provider] - 1-2 days
[2023-05-18 23:30] LABS: ALT 15 U/L (4-34); AST 29 U/L (14-36); African American GFR (CKD) >90 (>60 ml/min/1.73 sqM); Albumin 4.5 g/dL (3.5-5.0); Alkaline Phosphatase 49 U/L (38-126); Anion Gap 12 mmol/L; Blood Urea Nitrogen 5 mg/dL (7-17); Calcium 9.5 mg/dL (8.4-10.2); Carbon Dioxide 21 mmol/L (22-30); Chloride 101 mmol/L (98-107); Glucose 87 mg/dL (74-99); Non-African American GFR(CKD) >90 (>60 ml/min/1.73 sqM); Sodium 134 mmol/L (137-145); Total Bilirubin 0.8 mg/dL (0.2-1.3); Total Protein 7.4 g/dL (6.3-8.2)
[2023-05-18 23:42] LABS: Potassium 4.3 mmol/L (3.5-5.1)
[2023-05-18 23:44] LABS: Appearance,Urine Clear (Clear); Bilirubin,Urine Negative (Negative); Blood,Urine Negative (Negative); Color,Urine Colorless; Glucose,Urine (UA) Negative (Negative); Ketones,Urine Negative (Negative); Leukocyte Esterase,Urine Negative (Negative); Nitrite,Urine Negative (Negative); Protein,Urine Negative (Negative); Specific Gravity,Urine 1.004 (1.001-1.035); Urobilinogen,Urine <2.0 mg/dL (<2.0)
[2023-05-19 00:48] VITALS: BP 98/64; PULSE 89; RESP 14
== END 2023-05-19 00:52 | disposition home or self-care (01) ==
LOC: EC 18:12
DX: R42 Dizziness and giddiness (principal); J45.909 Unspecified asthma, uncomplicated; F41.9 Anxiety disorder, unspecified; F32.A Depression, unspecified; F17.200 Nicotine dependence, unspecified, uncomplicated; Z88.8 Allergy status to other drugs, medicaments and biological substances; Z79.899 Other long term (current) drug therapy
CPT/HCPCS: 36415; 80053; 81003; 83605; 93005; 96360; 96361; 99284

== ENCOUNTER 2023-06-01 22:51 | Emergency (ER) | payer BC, OTHER ==
[2023-06-01] MEDS ORDERED: SODIUM CHLORIDE 0.9% 1,000 ML IV STA (23:57)
--- NOTE | 2023-06-02 00:29 | ED ---
General Adult HPI - General Chief complaint: Nausea/Vomiting/Diarrhea Stated complaint: N/V, 12 wks Source: patient Mode of arrival: ambulatory Limitations: no limitations - History of Present Illness Initial comments: 22-year-old female with a [address] weeks [address] with [address] hankins presented to the ED with chief complaint of nausea vomiting. Patient states that she has had ongoing difficulties with nausea and vomiting. Was previously doing well on Ticlid nursing home this however notes that she discontinued this and nausea and vomiting have returned. States that she has been unable to keep food or fluids down for the past 4 days. Review of prior medical records shows poor relief of nausea with Reglan and Zofran however patient did have improvement with Compaz ine. Denies abdominal pain, vaginal discharge, vaginal bleeding. No chest pain or shortness of breath. No other complaints. - Related Data Home Medications Medication Instructions Recorded Confirmed Albuterol Inhaler [Ventolin Hfa 1 - 2 puff INHALATION RT-Q6H PRN 05/05/23 05/05/23 Inhaler] Rjm-Wdjr-Fsomj Acid 1 cap PO DAILY 05/05/23 05/05/23 [-U Capsule] Previous Rx's Medication Instructions Recorded Cephalexin [Keflex] 500 mg PO Q8HR #12 cap 05/05/23 Pyridoxine [Vitamin B-6] 25 mg PO Q8HR #60 tablet 05/05/23 Doxylamine Succinate [Unisom] 12.5 mg PO Q8HR #60 tablet 05/06/23 Promethazine [Phenergan] 25 mg PO Q4HR PRN #30 tablet 05/06/23 Prochlorperazine [Compazine] 10 mg PO Q6H PRN #30 tab 05/13/23 Allergies Allergy/AdvReac Type Severity Reaction Status Date / Time adhesive tape Allergy Unknown Verified 06/01/23 23:06 Review of Systems ROS Statement: Those systems with pertinent positive or pertinent negative responses have been documented in the HPI. ROS Other: All systems not noted in ROS Statement are negative. Past Medical History Past Medical History: Asthma History of Any Multi-Drug Resistant Organisms: None Reported Past Surgical History: Adenoidectomy, Tonsillectomy Additional Past Surgical History / Comment(s): [place] teeth exposure for braces, IUD, Past Anesthesia/Blood Transfusion Reactions: No Reported Reaction Past Psychological History: Anxiety, Depression Smoking Status: Vaper Past Alcohol Use History: None Reported Past Drug Use History: None Reported - Past Family History Mother Family Medical History: No Reported History Father Additional Family Medical History / Comment(s): colon cancer General Exam Limitations: no limitations General appearance: alert, in no apparent distress Eye exam: Present: normal appearance Neck exam: Present: normal inspection Respiratory exam: Present: normal lung sounds bilaterally Cardiovascular Exam: Present: regular rate, normal rhythm GI/Abdominal exam: Present: soft (No tenderness to palpation. No rebound guarding or rigidity.), normal bowel sounds Neurological exam: Present: alert, oriented X3 Skin exam: Present: warm, dry Course Vital Signs 06/01/23 23:06 Temperature 98.4 F Pulse Rate 96 Respiratory 16 Rate Blood Pressure 106/74 O2 Sat by Pulse 99 Oximetry Medical Decision Making - Medical Decision Making Was pt. sent in by a medical professional or institution (, PA, PERMIT COORDINATOR, urgent care, hospital, or residential...) When possible be specific @ -No Did you speak to anyone other than the patient for history (EMS, parent, family, police, friend...)? What history was obtained from this source @ -No Did you review nursing and triage notes (agree or disagree)? Why? @ -I reviewed and agree with nursing and triage notes Were old charts reviewed (outside hosp., previous admission, EMS record, old EKG, old radiological studies, urgent care reports/EKG's, residential records)? Report findings @ -Previous visits reviewed. For further details please see HPI. Differential Diagnosis (chest pain, altered mental status, abdominal pain women, abdominal pain men, vaginal bleeding, weakness, fever, dyspnea, syncope, headache, dizziness, GI bleed, back pain, seizure, CVA, palpatations, mental health, musculoskeletal)? @ -Differential Abdominal Pain Women: Appendicitis, Cholecystitis, diverticulosis, ischemic bowel, pancreatitis, hepatitis, UTI, gastroenteritis, AAA, incarcerated hernia, bowel obstruction, constipation, inflammatory bowel, hepatitis, peptic ulcer disease, splenic infarction, perforated viscus, vulvitis, ovarian torsion, PID, kidney stone, placenta abruption, this is not meant to be an all-inclusive list EKG interpreted by me (3pts min.). @ -As above X-rays interpreted by me (1pt min.). @ -None done CT interpreted by me (1pt min.). @ -None done U/S interpreted by me (1pt. min.). @ -None done What testing was considered but not performed or refused? (CT, X-rays, U/S, labs)? Why? @ -None What meds were considered but not given or refused? Why? @ -None Did you discuss the management of the patient with other professionals (professionals i.e. DrMike, PA, PERMIT COORDINATOR, lab, RT, psych nurse, director of social services, grain elevator agent, teacher, psychological operations officer, case picker)? Give summary @ -No Was smoking cessation discussed for >3mins.? @ -No Was critical care preformed (if so, how long)? @ -No Were there social determinants of health that impacted care today? How? (Homelessness, low income, unemployed, alcoholism, drug addiction, transportation, low edu. Level, literacy, decrease access to med. care, nursing home, rehab)? @ -No Was there de-escalation of care discussed even if they declined (Discuss DNR or withdrawal of care, Hospice)? DNR status @ -No What co-morbidities impacted this encounter? (DM, HTN, Smoking, COPD, CAD, Cancer, CVA, ARF, Chemo, Hep., AIDS, mental health diagnosis, sleep apnea, morbid obesity)? @ - Was patient admitted / discharged? Hospital course, mention meds given and route, prescriptions, significant lab abnormalities, going to OR and other pertinent info. @ -Discharge 22-year-old female approximately [address] Castillo presents to the ED with a chief complaint of nausea and vomiting. Patient previously on Dicleflis this and has been doing well on this however patient reports that she discontinued this once her symptoms were controlled. Patient states over the past 3 days has been unable to keep foods down. At this time, laboratory studies including CBC, CMP, UA unremarkable. Patient provided a liter of fluids here. Review of prior records showed or response to Reglan and promethazine and Zofran, therefore patient was given Compazine. Patient reporte d improvement with this and would like to be discharged home. Patient discharged home in stable condition. Discussed return cautions with patient verbalizes agreement. Undiagnosed new problem with uncertain prognosis? @ -No Drug Therapy requiring intensive monitoring for toxicity (Heparin, Nitro, Insulin, Cardizem)? @ -No Were any procedures done? @ -No Diagnosis/symptom? @ -Nausea and vomiting Acute, or Chronic, or Acute on Chronic? @ -Acute Uncomplicated (without systemic symptoms) or Complicated (systemic symptoms)? @ -Uncomplicated Side effects of treatment? @ -No Exacerbation, Progression, or Severe Exacerbation? @ -No Poses a threat to life or bodily function? How? (Chest pain, [place], [place], pneumonia, PE, COPD, DKA, ARF, appy, cholecystitis, CVA, Diverticulitis, Homicidal, Suicidal, threat to staff... and all critical care pts) @ -No - Lab Data Result diagrams: 06/02/23 00:35 06/02/23 00:35 Lab Results 06/01/23 06/02/23 06/02/23 Range/Units 23:30 00:35 00:35 WBC 7.9 (3.8-10.6) k/uL RBC 3.61 L (3.80-5.40) m/uL Hgb 11.9 (11.4-16.0) gm/dL Hct 33.1 L (34.0-46.0) % MCV 91.6 (80.0-100.0) fL MCH 33.0 (25.0-35.0) pg MCHC 36.1 (31.0-37.0) g/dL RDW 12.2 (11.5-15.5) % Plt Count 180 (150-450) k/uL MPV 7.8 Neutrophils % 73 % Lymphocytes % 20 % Monocytes % 4 % Eosinophils % 1 % Basophils % 0 % Neutrophils # 5.8 (1.3-7.7) k/uL Lymphocytes # 1.6 (1.0-4.8) k/uL Monocytes # 0.3 (0-1.0) k/uL Eosinophils # 0.1 (0-0.7) k/uL Basophils # 0.0 (0-0.2) k/uL Sodium 132 L (137-145) mmol/L Potassium 3.7 (3.5-5.1) mmol/L Chloride 102 (98-107) mmol/L Carbon Dioxide 22 (22-30) mmol/L Anion Gap 8 mmol/L BUN 6 L (7-17) mg/dL Creatinine 0.49 L (0.52-1.04) mg/dL Est GFR (CKD-EPI)AfAm >90 (>60 ml/min/1.73 sqM) Est GFR (CKD-EPI)NonAf >90 (>60 ml/min/1.73 sqM) Glucose 79 (74-99) mg/dL Calcium 9.0 (8.4-10.2) mg/dL Total Bilirubin 0.5 (0.2-1.3) mg/dL AST 27 (14-36) U/L ALT 19 (4-34) U/L Alkaline Phosphatase 45 (38-126) U/L Total Protein 6.3 (6.3-8.2) g/dL Albumin 3.8 (3.5-5.0) g/dL Urine Color Yellow Urine Appearance Clear (Clear) Urine pH 5.5 (5.0-8.0) Ur Specific [place] <1.005 (1.001-1.035) Urine Protein Negative (Negative) Urine Glucose (UA) Negative (Negative) Urine Ketones 1+ H (Negative) Urine Blood Negative (Negative) Urine Nitrite Negative (Negative) Urine Bilirubin Negative (Negative) Urine Urobilinogen <2.0 (<2.0) mg/dL Ur Leukocyte Esterase Negative (Negative) Disposition Clinical Impression: Nausea and vomiting Disposition: HOME SELF-CARE Condition: Good Additional Instructions: Please return to the Emergency Department if symptoms worsen or any other concerns. These follow-up with your SAFETY INSTRUCTION POLICE OFFICER or PCP. Is patient prescribed a controlled substance at d/c from ED?: No Referrals: Dean Hunt MD [Primary Care Provider] - 1-2 days Time of Disposition: 01:29
[2023-06-02] MEDS ORDERED: PROCHLORPERAZINE INJ 10 MG/2 ML VIAL IVP STA ×2 (00:30→00:35)
[2023-06-02 00:33] LABS: Appearance,Urine Clear (Clear); Color,Urine Yellow; Glucose,Urine (UA) Negative (Negative); PH, Urine 5.5 (5.0-8.0); Protein,Urine Negative (Negative); Specific Gravity,Urine <1.005 (1.001-1.035)
[2023-06-02 00:34] LABS: Bilirubin,Urine Negative (Negative); Blood,Urine Negative (Negative); Ketones,Urine 1+ (Negative); Leukocyte Esterase,Urine Negative (Negative); Nitrite,Urine Negative (Negative); Urobilinogen,Urine <2.0 mg/dL (<2.0)
[2023-06-02 00:58] LABS: Basophils % (A) 0 %; Eosinophils # (A) 0.1 k/uL (0-0.7); Eosinophils % (A) 1 %; HCT 33.1 % (34.0-46.0); HGB 11.9 gm/dL (11.4-16.0); Lymphocytes # (A) 1.6 k/uL (1.0-4.8); Lymphocytes % (A) 20 %; MCHC 36.1 g/dL (31.0-37.0); MCV 91.6 fL (80.0-100.0); Mean Platelet Volume 7.8; Monocytes # (A) 0.3 k/uL (0-1.0); Monocytes % (A) 4 %; Neutrophils # (A) 5.8 k/uL (1.3-7.7); Neutrophils % (A) 73 %; Platelet Count 180 k/uL (150-450); RBC 3.61 m/uL (3.80-5.40); RDW 12.2 % (11.5-15.5); WBC 7.9 k/uL (3.8-10.6)
[2023-06-02 01:07] LABS: ALT 19 U/L (4-34); AST 27 U/L (14-36); African American GFR (CKD) >90 (>60 ml/min/1.73 sqM); Albumin 3.8 g/dL (3.5-5.0); Alkaline Phosphatase 45 U/L (38-126); Anion Gap 8 mmol/L; Blood Urea Nitrogen 6 mg/dL (7-17); Carbon Dioxide 22 mmol/L (22-30); Chloride 102 mmol/L (98-107); Glucose 79 mg/dL (74-99); Non-African American GFR(CKD) >90 (>60 ml/min/1.73 sqM); Potassium 3.7 mmol/L (3.5-5.1); Sodium 132 mmol/L (137-145); Total Bilirubin 0.5 mg/dL (0.2-1.3); Total Protein 6.3 g/dL (6.3-8.2)
[2023-06-02 02:04] VITALS: BP 90/51; PULSE 89; RESP 18; TEMP 98.7
== END 2023-06-02 01:55 | disposition home or self-care (01) ==
LOC: EC 22:51
DX: O21.9 Vomiting of pregnancy, unspecified (principal); O99.511 Diseases of the respiratory system complicating pregnancy, first trimester; J45.909 Unspecified asthma, uncomplicated; Z88.8 Allergy status to other drugs, medicaments and biological substances; Z86.59 Personal history of other mental and behavioral disorders; Z79.899 Other long term (current) drug therapy; Z3A.12 12 weeks gestation of pregnancy
CPT/HCPCS: 36415; 80053; 85025; 81003; 99284; 96374; 96361; J0780

== ENCOUNTER 2023-06-06 11:38 | Emergency (ER) | payer BC, OTHER ==
[2023-06-06] MEDS ORDERED: SODIUM CHLORIDE 0.9% 2,000 ML IV STA (12:12)
--- NOTE | 2023-06-06 12:15 | ED ---
General Adult HPI <Lon Pavon - Last Filed: 06/06/23 17:07> - General Source: patient Mode of arrival: ambulatory Limitations: no limitations <Xuan Irving - Last Filed: 06/14/23 12:18> - General Chief complaint: Nausea/Vomiting/Diarrhea Stated complaint: N/V, 13wks Time Seen by Provider: 06/06/23 11:40 - History of Present Illness Initial comments: 22-year-old female with no past history of present to the emergency department reporting nausea and vomiting. Patient has been seen in our emergency room previously for similar complaint. She is approximately 13 weeks . She follows with Dr. Castillo. She has B6, Unisom and Reglan at home. States she's been taking his medications without any improvement in her symptoms. She has been unable to hold down anything for the past 3 days. Her urine this morning was extremely dark in coloration. She denies dysuria. No cramping or bleeding. No other alleviating, precipitating or modifying factors (Xuan Irving) - Related Data Home Medications Medication Instructions Recorded Confirmed Albuterol Inhaler [Ventolin Hfa 1 - 2 puff INHALATION RT-Q6H PRN 05/05/2306/12 Inhaler] Umb-Oddp-Ehcod Acid 1 cap PO DAILY 05/05/23 06/12/23 [-U Capsule] Metoclopramide [Reglan] 5 mg PO PRN 06/12/23 Allergies Allergy/AdvReac Type Severity Reaction Status Date / Time adhesive tape Allergy Unknown Verified 06/12/23 11:35 Review of Systems ROS Other: All systems not noted in ROS Statement are negative. <Lon Pavon - Last Filed: 06/06/23 17:07> ROS Other: All systems not noted in ROS Statement are negative. <Xuan Irving - Last Filed: 06/14/23 12:18> ROS Statement: Those systems with pertinent positive or pertinent negative responses have been documented in the HPI. Past Medical History Past Medical History: Asthma History of Any Multi-Drug Resistant Organisms: None Reported Past Surgical History: Adenoidectomy, Tonsillectomy Additional Past Surgical History / Comment(s): [place] teeth exposure for braces, IUD, Past Anesthesia/Blood Transfusion Reactions: No Reported Reaction Past Psychological History: Anxiety, Depression Smoking Status: Vaper Past Alcohol Use History: None Reported Past Drug Use History: None Reported - Past Family History Mother Family Medical History: No Reported History Father Additional Family Medical History / Comment(s): colon cancer <Xuan Irving Nadine Last Filed: 06/14/23 12:18> General Exam Limitations: no limitations General appearance: alert, in no apparent distress Head exam: Present: atraumatic, normocephalic, normal inspection Eye exam: Present: normal appearance, PERRL, EOMI. Absent: scleral icterus, conjunctival injection, periorbital swelling ENT exam: Present: normal exam, mucous membranes moist Neck exam: Present: normal inspection. Absent: tenderness, meningismus, lymphadenopathy Respiratory exam: Present: normal lung sounds bilaterally. Absent: respiratory distress, wheezes, rales, rhonchi, stridor Cardiovascular Exam: Present: regular rate, normal rhythm, normal heart sounds. Absent: systolic murmur, diastolic murmur, rubs, gallop, clicks GI/Abdominal exam: Present: soft, normal bowel sounds. Absent: distended, tenderness, guarding, rebound, rigid Extremities exam: Present: normal inspection, full ROM, normal capillary refill. Absent: tenderness, pedal edema, joint swelling, calf tenderness Back exam: Present: normal inspection Neurological exam: Present: alert, oriented X3, CN II-XII intact Psychiatric exam: Present: normal affect, normal mood Skin exam: Present: warm, dry, intact, normal color. Absent: rash <Xuan Irving - Last Filed: 06/14/23 12:18> Course Vital Signs 06/06/23 06/06/23 11:40 15:39 Temperature 98.2 F 98.6 F Pulse Rate 101 H 77 Respiratory 20 18 Rate Blood Pressure 103/61 99/56 O2 Sat by Pulse 98 97 Oximetry Medical Decision Making - Lab Data Result diagrams: 06/06/23 12:27 06/06/23 12:27 <Lon Pavon - Last Filed: 06/06/23 17:07> - Lab Data Result diagrams: 06/06/23 12:27 06/06/23 12:27 <Xuan Irving - Last Filed: 06/14/23 12:18> - Medical Decision Making Patient reevaluated by myself, Dr. Pavon. Patient resting comfortably in bed. Patient is feeling somewhat better. Repeat Accu-Chek 93. Patient is able to tolerate oral intake on second repeat. Patient is feeling further better and comfortable with discharge home. Patient updated on results and need for follo w-up. Diagnosis: Hyperemesis gravidarum. Acute on chronic. (Lon Pavon) Was pt. sent in by a medical professional or institution (, GEO, BRASS AND WIND INSTRUMENT REPAIRER, urgent care, hospital, or snf...) When possible be specific @ -No Did you speak to anyone other than the patient for history (EMS, parent, family, police, friend...)? What history was obtained from this source @ -No Did you review nursing and triage notes (agree or disagree)? Why? @ -I reviewed and agree with nursing and triage notes Were old charts reviewed (outside hosp., previous admission, EMS record, old EKG, old radiological studies, urgent care reports/EKG's, snf records)? Report findings @ -Old charts were reviewed. Patient was hospitalized for similar complaint within the past month Differential Diagnosis (chest pain, altered mental status, abdominal pain women, abdominal pain men, vaginal bleeding, weakness, fever, dyspnea, syncope, headache, dizziness, GI bleed, back pain, seizure, CVA, palpatations, mental health, musculoskeletal)? @ -Hyperemesis gravidarum, gastroenteritis, URI EKG interpreted by me (3pts min.). @ -not done X-rays interpreted by me (1pt min.). @ -None done CT interpreted by me (1pt min.). @ -None done U/S interpreted by me (1pt. min.). @ -None done What testing was considered but not performed or refused? (CT, X-rays, U/S, labs)? Why? @ -None What meds were considered but not given or refused? Why? @ -None Did you discuss the management of the patient with other professionals (professionals i.e. GEO De León, BRASS AND WIND INSTRUMENT REPAIRER, lab, RT, psych nurse, social service manager, risk modeler, teacher, morale officer, case management specialist)? Give summary @ -Dr. Pavon who will take over care Was smoking cessation discussed for >3mins.? @ -No Was critical care preformed (if so, how long)? @ -No Were there social determinants of health that impacted care today? How? (Homelessness, low income, unemployed, alcoholism, drug addiction, transportation, low edu. Level, literacy, decrease access to med. care, [facility] [facility], rehab)? @ -No Was there de-escalation of care discussed even if they declined (Discuss DNR or withdrawal of care, Hospice)? DNR status @ -No What co-morbidities impacted this encounter? (DM, HTN, Smoking, COPD, CAD, Cancer, CVA, ARF, Chemo, Hep., AIDS, mental health diagnosis, sleep apnea, morbid obesity)? @ -None Was patient admitted / discharged? Hospital course, mention meds given and route, prescriptions, significant lab abnormalities, going to OR and other pertinent info. @ -Upon arrival patient was placed into room 30. Thorough history and physical exam is performed. IV access was established. Patient was given 2 L of normal saline. Laboratory studies were conducted. He did receive Reglan and Benadryl however continues to have nausea. I did discuss treatment with Zofran for which she was agreeable to the risks and benefits. Zofran administered at this time. Patient will signed out to Dr. Pavon Undiagnosed new problem with uncertain prognosis? @ -No Drug Therapy requiring intensive monitoring for toxicity (Heparin, Nitro, Insulin, Cardizem)? @ -No Were any procedures done? @ -No Diagnosis/symptom? @ -acute nausea and vomiting, second trimester Acute, or Chronic, or Acute on Chronic? @ -acute, recurrent Uncomplicated (without systemic symptoms) or Complicated (systemic symptoms)? @ -complicated Side effects of treatment? @ -No Exacerbation, Progression, or Severe Exacerbation? @ -yes Poses a threat to life or bodily function? How? (Chest pain, [place], [place], pneumonia, PE, COPD, DKA, ARF, appy, cholecystitis, CVA, Diverticulitis, Homicidal, Farah icidal, threat to staff... and all critical care pts) @ -No (Xuan Irving) - Lab Data Lab Results 06/06/23 06/06/23 06/06/23 Range/Units 12:27 12:27 12:27 WBC 7.5 (3.8-10.6) k/uL RBC 3.68 L (3.80-5.40) m/uL Hgb 11.8 (11.4-16.0) gm/dL Hct 33.7 L (34.0-46.0) % MCV 91.4 (80.0-100.0) fL MCH 32.0 (25.0-35.0) pg MCHC 35.0 (31.0-37.0) g/dL RDW 12.7 (11.5-15.5) % Plt Count 175 (150-450) k/uL MPV 8.5 Neutrophils % 77 % Lymphocytes % 16 % Monocytes % 4 % Eosinophils % 1 % Basophils % 0 % Neutrophils # 5.8 (1.3-7.7) k/uL Lymphocytes # 1.2 (1.0-4.8) k/uL Monocytes # 0.3 (0-1.0) k/uL Eosinophils # 0.1 (0-0.7) k/uL Basophils # 0.0 (0-0.2) k/uL Sodium 133 L (137-145) mmol/L Potassium 3.9 (3.5-5.1) mmol/L Chloride 104 (98-107) mmol/L Carbon Dioxide 16 L (22-30) mmol/L Anion Gap 13 mmol/L BUN 6 L (7-17) mg/dL Creatinine 0.46 L (0.52-1.04) mg/dL Est GFR (CKD-EPI)AfAm >90 (>60 ml/min/1.73 sqM) Est GFR (CKD-EPI)NonAf >90 (>60 ml/min/1.73 sqM) Glucose 63 L (74-99) mg/dL POC Glucose (mg/dL) (70-110) mg/dL POC Glu Butt Presser ID Calcium 8.7 (8.4-10.2) mg/dL Total Bilirubin 1.1 (0.2-1.3) mg/dL AST 30 (14-36) U/L ALT 18 (4-34) U/L Alkaline Phosphatase 41 (38-126) U/L Total Protein 6.2 L (6.3-8.2) g/dL Albumin 3.7 (3.5-5.0) g/dL Lipase 70 (23-300) U/L Urine Color Light Yellow Urine Appearance Clear (Clear) Urine pH 6.0 (5.0-8.0) Ur Specific [place] 1.015 (1.001-1.035) Urine Protein Negative (Negative) Urine Glucose (UA) Negative (Negative) Urine Ketones 4+ (Negative) Urine Blood Negative (Negative) Urine Nitrite Negative (Negative) Urine Bilirubin Negative (Negative) Urine Urobilinogen <2.0 (<2.0) mg/dL Ur Leukocyte Esterase Negative (Negative) 06/06/23 Range/Units 16:34 WBC (3.8-10.6) k/uL RBC (3.80-5.40) m/uL Hgb (11.4-16.0) gm/dL Hct (34.0-46.0) % MCV (80.0-100.0) fL MCH (25.0-35.0) pg MCHC (31.0-37.0) g/dL RDW (11.5-15.5) % Plt Count (150-450) k/uL MPV Neutrophils % % Lymphocytes % % Monocytes % % Eosinophils % % Basophils % % Neutrophils # (1.3-7.7) k/uL Lymphocytes # (1.0-4.8) k/uL Monocytes # (0-1.0) k/uL Eosinophils # (0-0.7) k/uL Basophils # (0-0.2) k/uL Sodium (137-145) mmol/L Potassium (3.5-5.1) mmol/L Chloride (98-107) mmol/L Carbon Dioxide (22-30) mmol/L Anion Gap mmol/L BUN (7-17) mg/dL Creatinine (0.52-1.04) mg/dL Est GFR (CKD-EPI)AfAm (>60 ml/min/1.73 sqM) Est GFR (CKD-EPI)NonAf (>60 ml/min/1.73 sqM) Glucose (74-99) mg/dL POC Glucose (mg/dL) 97 (70-110) mg/dL POC Glu Butt Presser ID [place], [place] Calcium (8.4-10.2) mg/dL Total Bilirubin (0.2-1.3) mg/dL AST (14-36) U/L ALT (4-34) U/L Alkaline Phosphatase (38-126) U/L Total Protein (6.3-8.2) g/dL Albumin (3.5-5.0) g/dL Lipase (23-300) U/L Urine Color Urine Appearance (Clear) Urine pH (5.0-8.0) Ur Specific [place] (1.001-1.035) Urine Protein (Negative) Urine Glucose (UA) (Negative) Urine Ketones (Negative) Urine Blood (Negative) Urine Nitrite (Negative) Urine Bilirubin (Negative) Urine Urobilinogen (<2.0) mg/dL Ur Leukocyte Esterase (Negative) Disposition Is patient prescribed a controlled substance at d/c from ED?: No Time of Disposition: 17:10 <Lon Pavon - Last Filed: 06/06/23 17:07> <Xuan Irving - Last Filed: 06/14/23 12:18> Clinical Impression: Hyperemesis Disposition: HOME SELF-CARE Condition: Stable Instructions (If sedation given, give patient instructions): Hyperemesis Gr avidarum (ED) Additional Instructions: Prescription sent to pharmacy. Please do follow-up with your primary care physician in the next couple days for recheck. Please follow-up with your BUTTON SPINDLER in the next one to 2 days for recheck. Return for vaginal bleeding, pelvic pain, vomiting, not tolerating fluids, worsening symptoms or any other concerns. Referrals: Dean Hunt MD [Primary Care Provider] - 1-2 days Yelitza Castillo DO [Doctor of Osteopathic Medicine] - 1-2 days
[2023-06-06] MEDS ORDERED: diphenhydrAMINE 50 MG/ML 1 ML VIAL IVP STA (12:56)
[2023-06-06] MEDS ORDERED: METOCLOPRAMIDE 5 MG/ML 2 ML VIAL IVP STA (12:56)
[2023-06-06 13:09] LABS: Basophils % (A) 0 %; Eosinophils # (A) 0.1 k/uL (0-0.7); Eosinophils % (A) 1 %; HCT 33.7 % (34.0-46.0); HGB 11.8 gm/dL (11.4-16.0); Lymphocytes # (A) 1.2 k/uL (1.0-4.8); Lymphocytes % (A) 16 %; MCV 91.4 fL (80.0-100.0); Mean Platelet Volume 8.5; Monocytes # (A) 0.3 k/uL (0-1.0); Monocytes % (A) 4 %; Neutrophils # (A) 5.8 k/uL (1.3-7.7); Neutrophils % (A) 77 %; Platelet Count 175 k/uL (150-450); RBC 3.68 m/uL (3.80-5.40); RDW 12.7 % (11.5-15.5); WBC 7.5 k/uL (3.8-10.6)
[2023-06-06 13:32] LABS: ALT 18 U/L (4-34); African American GFR (CKD) >90 (>60 ml/min/1.73 sqM); Albumin 3.7 g/dL (3.5-5.0); Anion Gap 13 mmol/L; Blood Urea Nitrogen 6 mg/dL (7-17); Calcium 8.7 mg/dL (8.4-10.2); Carbon Dioxide 16 mmol/L (22-30); Chloride 104 mmol/L (98-107); Glucose 63 mg/dL (74-99); Lipase 70 U/L (23-300); Non-African American GFR(CKD) >90 (>60 ml/min/1.73 sqM); Sodium 133 mmol/L (137-145); Total Bilirubin 1.1 mg/dL (0.2-1.3); Total Protein 6.2 g/dL (6.3-8.2)
[2023-06-06 13:38] LABS: Alkaline Phosphatase 41 U/L (38-126); Potassium 3.9 mmol/L (3.5-5.1)
[2023-06-06 13:39] LABS: AST 30 U/L (14-36)
[2023-06-06] MEDS ORDERED: ONDANSETRON 4 MG/2 ML VIAL IVP STA (15:18)
[2023-06-06 15:22] LABS: Appearance,Urine Clear (Clear); Bilirubin,Urine Negative (Negative); Blood,Urine Negative (Negative); Color,Urine Light Yellow; Glucose,Urine (UA) Negative (Negative); Ketones,Urine 4+ (Negative); Protein,Urine Negative (Negative); Specific Gravity,Urine 1.015 (1.001-1.035); Urobilinogen,Urine <2.0 mg/dL (<2.0)
[2023-06-06 15:23] LABS: Leukocyte Esterase,Urine Negative (Negative); Nitrite,Urine Negative (Negative)
[2023-06-06 15:40] VITALS: BP 99/56; PULSE 77; RESP 18; TEMP 98.6
[2023-06-06 16:36] LABS: Glucose,Whole Blood 97 mg/dL (70-110)
== END 2023-06-06 21:47 | disposition home or self-care (01) ==
LOC: EC 11:38
DX: O21.0 Mild hyperemesis gravidarum (principal); O99.511 Diseases of the respiratory system complicating pregnancy, first trimester; J45.909 Unspecified asthma, uncomplicated; Z86.59 Personal history of other mental and behavioral disorders; Z3A.13 13 weeks gestation of pregnancy
CPT/HCPCS: 36415; 80053; 83690; 85025; 81003; 99284; 96374; 96361 ×2; J1200; J2765; J2405

== ENCOUNTER 2023-06-12 11:01 | Outpatient (CLI) | payer BC, OTHER ==
[2023-06-12] MEDS ORDERED: ONDANSETRON 4 MG/2 ML VIAL IVP STA (11:39)
[2023-06-12] MEDS: LACTATED RINGERS 1,000 ML IV SCH ×2 (11:53→11:57)
[2023-06-12 14:30] VITALS: BP 105/57; PULSE 81; RESP 16; TEMP 98
[2023-06-12 23:32] LABS: Hepatitis B Surface Antigen Nonreactive
[2023-06-13 00:38] LABS: HIV 2 AB Non-Reactive (Non-Reactive); HIV AB P24 Non-Reactive (Non-Reactive); HIV P24 AG Non-Reactive (Non-Reactive)
--- NOTE | 2023-06-15 11:32 | P.MSEPDOC ---
Presenting Problems - Arrival Data Date of Arrival on Unit: 06/12/23 Time of Arrival on Unit: 11:02 Mode of Transport: Ambulatory - Complaint OB-Reason for Admission/Chief Complaint: Other Comment: pt sent over from the office with a order for N/V with orders per Dr Castillo Medical History - Information : 1 Para: 0 Term: 0 : 0 Abortions: Spontaneous or Elective: 0 Number of Living Children: 0 - Gestational Age Gestational Age by MARTHA (wks/days): 13 Weeks and 4 Days Review of Systems - Review of Systems Constitutional: No problems Breast: No problems ENT: No problems Cardiovascular: No problems Respiratory: No problems Gastrointestinal: No problems Genitourinary: No problems Musculoskeletal: No problems Neurological: No problems Skin: No problems Vital Signs - Temperature Temperature: 98 F Temperature Source: Oral - Pulse Right Brachial Pulse Rate: 81 Pulse Assessment Method: Automatic Cuff - Respirations Respiratory Rate: 16 Oxygen Delivery Method: Room Air - Blood Pressure Right Arm Blood Pressure: 105/57 Blood Pressure Mean: 73 Blood Pressure Source: Automatic Cuff Physician Notification - Physician Notified Physician Notified Date: 06/12/23 Physician Notified Time: 13:00 Physician: Dr Castillo New Order Received: Yes - Notification Comment Comment: may discharge to home after pt gets her panel drawn Maternal Triage Index - Scheduled/Requesting Priority 5 Scheduled/Requesting Priority 5: Yes Criteria Met for Priority 5: pt sent with a order from Dr Castillo from the office for N/V with orders Disposition - Disposition OB Disposition: Discharge to home Discharge Date: 06/12/23 Discharge Time: 14:12 I agree with the RN Medical Screening Exam: Yes Case reviewed; plan agreed upon as documented in EMR&OBIX.: Yes Diagnosis: DEHYDRATION
== END 2023-06-12 14:12 | disposition home or self-care (01) ==
LOC: FBPOP 11:01
PROVIDERS: ATTEND Obstetrics & Gynecology Obstetrics
DX: O99.281 Endocrine, nutritional and metabolic diseases complicating pregnancy, first trimester (principal); O99.331 Smoking (tobacco) complicating pregnancy, first trimester; F17.200 Nicotine dependence, unspecified, uncomplicated; Z3A.13 13 weeks gestation of pregnancy; Z91.048 Other nonmedicinal substance allergy status
CPT/HCPCS: 99214; 96361; 96367; 96374; 86762; 82947; 87340; 86780; 87390; J2405

== ENCOUNTER 2023-08-15 18:31 | Emergency (ER) | payer BC, OTHER ==
[2023-08-15] MEDS ORDERED: SODIUM CHLORIDE 0.9% 1,000 ML IV ONE (19:20)
[2023-08-15 19:42] LABS: Basophils % (A) 0 %; Eosinophils # (A) 0.1 k/uL (0-0.7); Eosinophils % (A) 2 %; HCT 29.9 % (34.0-46.0); HGB 10.8 gm/dL (11.4-16.0); Lymphocytes % (A) 15 %; MCH 33.9 pg (25.0-35.0); MCHC 36.1 g/dL (31.0-37.0); MCV 93.9 fL (80.0-100.0); Mean Platelet Volume 7.8; Monocytes # (A) 0.3 k/uL (0-1.0); Monocytes % (A) 5 %; Neutrophils % (A) 77 %; Platelet Count 184 k/uL (150-450); RBC 3.18 m/uL (3.80-5.40); RDW 12.6 % (11.5-15.5); WBC 6.5 k/uL (3.8-10.6)
[2023-08-15 19:52] LABS: ALT 32 U/L (4-34); AST 35 U/L (14-36); African American GFR (CKD) >90 (>60 ml/min/1.73 sqM); Albumin 3.4 g/dL (3.5-5.0); Alkaline Phosphatase 70 U/L (38-126); Anion Gap 12 mmol/L; Blood Urea Nitrogen 6 mg/dL (7-17); Calcium 8.7 mg/dL (8.4-10.2); Carbon Dioxide 18 mmol/L (22-30); Chloride 105 mmol/L (98-107); Glucose 94 mg/dL (74-99); Non-African American GFR(CKD) >90 (>60 ml/min/1.73 sqM); Potassium 3.6 mmol/L (3.5-5.1); Sodium 135 mmol/L (137-145); Total Bilirubin 0.5 mg/dL (0.2-1.3)
[2023-08-15 20:35] LABS: Appearance,Urine Clear (Clear); Bacteria,Urine Rare /hpf; Bilirubin,Urine Negative (Negative); Blood,Urine Negative (Negative); Color,Urine Light Yellow; Glucose,Urine (UA) Negative (Negative); Ketones,Urine Negative (Negative); Leukocyte Esterase,Urine Moderate (Negative); Mucus,Urine Occasional /hpf; Nitrite,Urine Negative (Negative); Protein,Urine Negative (Negative); RBC,Urine 1 /hpf (0-5); Specific Gravity,Urine 1.014 (1.001-1.035); Squamous Epithelial Cell,Urine 3 /hpf (0-4); Urobilinogen,Urine <2.0 mg/dL (<2.0); WBC,Urine 1 /hpf (0-5)
--- NOTE | 2023-08-15 22:43 | ED ---
General Adult HPI - General Chief complaint: Upper Respiratory Infection Stated complaint: Low O2 - COVID+, 23wks L&D aware Time Seen by Provider: 08/15/23 19:09 Source: patient, RN notes reviewed Mode of arrival: ambulatory Limitations: no limitations - History of Present Illness Initial comments: 23-year-old female no significant past medical history presents the emergency department with chief complaint: Positive. Patient reports that she is Covid positive last few days. She reports that she was instructed to come to the emergency department if she had low oxygen. Patient reports having a student readings as low as 91% at home. He does reports some associated symptoms of nausea and vomiting. She denies chest pain, chest tightness, palpitations or difficulty breathing. She endorses that she is 23 weeks however denies any vaginal bleeding, vaginal cramping, vaginal discharge or low back pain. - Related Data Home Medications Medication Instructions Recorded Confirmed Albuterol Inhaler [Ventolin Hfa 1 - 2 puff INHALATION RT-Q6H PRN 05/05/23 06/12/23 Inhaler] Mjq-Alix-Gyiup Acid 1 cap PO DAILY 05/05/23 06/12/23 [-U Capsule] Metoclopramide [Reglan] 5 mg PO PRN 06/12/23 Previous Rx's Medication Instructions Recorded Nirmatrelvir/Ritonavir [Paxlovid See Rx Instructions .ROUTE 08/15/23 2X150 mg-100 mg (Eua)] .COMPLEX #30 tab Allergies Allergy/AdvReac Type Severity Reaction Status Date / Time adhesive tape Allergy Unknown Verified 06/12/23 11:35 Review of Systems ROS Statement: Those systems with pertinent positive or pertinent negative responses have been documented in the HPI. ROS Other: All systems not noted in ROS Statement are negative. Past Medical History Past Medical History: Asthma History of Any Multi-Drug Resistant Organisms: None Reported Past Surgical History: Adenoidectomy, Tonsillectomy Additional Past Surgical History / Comment(s): Kanine teeth exposure for braces, IUD, Past Anesthesia/Blood Transfusion Reactions: No Reported Reaction Past Psychological History: Anxiety, Depression Smoking Status: Vaper Past Alcohol Use History: None Reported Past Drug Use History: None Reported - Past Family History Mother Family Medical History: No Reported History Father Additional Family Medical History / Comment(s): colon cancer General Exam - General Exam Comments Initial Comments: General: Alert, in no acute distress Head: atraumatic normocephalic. Eyes PERRL, EOMI intact, mucous membranes moist Respiratory: Lungs clear to auscultation bilaterally Cardiovascular: Heart rate regular rhythm Abdominal: Soft without guarding or rebound Extremities: Normal inspection with full range of motion and normal capillary refill Neuroogic: alert and oriented 3, CN II-XII intact, able to ambulate with steady gait Skin: warm dry and intact with normal color Limitations: no limitations Course Vital Signs 08/15/23 08/15/23 08/15/23 18:57 20:00 21:00 Temperature 98.1 F 98.0 F Pulse Rate 107 H 86 70 Respiratory 20 16 16 Rate Blood Pressure 116/75 96/64 96/66 O2 Sat by Pulse 96 99 100 Oximetry 08/15/23 23:01 Temperature 98.3 F Pulse Rate 91 Respiratory 18 Rate Blood Pressure 108/69 O2 Sat by Pulse 99 Oximetry Medical Decision Making - Medical Decision Making Was pt. sent in by a medical professional or institution (Dr. PA, NURSES' AIDE, urgent care, hospital, or [facility]...) When possible be specific @ -[No] Did you speak to anyone other than the patient for history (EMS, parent, family, police, friend...)? What history was obtained from this source @ -[No] Did you review nursing and triage notes (agree or disagree)? Why? @ -[I reviewed and agree with nursing and triage notes] Were old charts reviewed (outside hosp., previous admission, EMS record, old EKG, old radiological studies, urgent care reports/EKG's, [facility] records)? Report findings @ -[No old charts were reviewed] Differential Diagnosis (chest pain, altered mental status, abdominal pain women, abdominal pain men, vaginal bleeding, weakness, fever, dyspnea, syncope, headache, dizziness, GI bleed, back pain, seizure, CVA, palpatations, mental health, musculoskeletal)? @ -[not applicable] EKG interpreted by me (3pts min.). @ -[As above] X-rays interpreted by me (1pt min.). @ -[None done] CT interpreted by me (1pt min.). @ -[None done] U/S interpreted by me (1pt. min.). @ -[None done] What testing was considered but not performed or refused? (CT, X-rays, U/S, labs)? Why? @ -[None] What meds were considered but not given or refused? Why? @ -[None] Did you discuss the management of the patient with other professionals (professionals i.e. , PA, NURSES' AIDE, lab, RT, psych nurse, social media sr strategy manager, dumpling machine operator, teacher, antisubmarine weapons officer, registered nurse hh case manager)? Give summary @ -[No] Was smoking cessation discussed for >3mins.? @ -[No] Was critical care preformed (if so, how long)? @ -[No] Were there social determinants of health that impacted care today? How? (Homelessness, low income, unemployed, alcoholism, drug addiction, transportation, low edu. Level, literacy, decrease access to med. care, care home, rehab)? @ -[No] Was there de-escalation of care discussed even if they declined (Discuss DNR or withdrawal of care, Hospice)? DNR status @ -[No] What co-morbidities impacted this encounter? (DM, HTN, Smoking, COPD, CAD, Cancer, CVA, ARF, Chemo, Hep., AIDS, mental health diagnosis, sleep apnea, morbid obesity)? @ -[None] Was patient admitted / discharged? Hospital course, mention meds given and route, prescriptions, significant lab abnormalities, going to OR and other pertinent info. @ -Discharged.23-year-old female who presents the emergency department with covid positive. Patient had a thorough history and physical exam performed. There are no neurologic focal deficits. Heart rate is regular rate and rhythm. Lungs are clear to auscultation bilaterally abdomen is soft and nontender, and gravid. Patient had laboratory studies which were essentially unremarkable. Patient is COVID +. I discussed results in detail the patient verbalized understanding all questions were addressed. She was provided 1 L of IV fluids for symptomatic. She was provided a prescription for Paxlovid. Return precautions were discussed at length. Educated on the importance of follow-up with Primary OB in 1-2 days. Discharged in stable co ndition. Case is discussed with Dr. Pavon, ED attending who agrees with plan of care Undiagnosed new problem with uncertain prognosis? @ -[No] Drug Therapy requiring intensive monitoring for toxicity (Heparin, Nitro, Insulin, Cardizem)? @ -[No] Were any procedures done? @ -[No] Diagnosis/symptom? @ -COVID Positive - Nausea and vomiting - 23 WEEKS Acute, or Chronic, or Acute on Chronic? @ -Acute Uncomplicated (without systemic symptoms) or Complicated (systemic symptoms)? @ -Complicated Side effects of treatment? @ -[No] Exacerbation, Progression, or Severe Exacerbation? @ -[No] Poses a threat to life or bodily function? How? (Chest pain, USA, IA, pneumonia, PE, COPD, DKA, ARF, appy, cholecystitis, CVA, Diverticulitis, Homicidal, Suicidal, threat to staff... and all critical care pts) @ -Low likelihood - Lab Data Result diagrams: 08/15/23 19:35 08/15/23 19:35 Lab Results 08/15/23 08/15/23 08/15/23 Range/Units 19:35 19:35 20:20 WBC 6.5 (3.8-10.6) k/uL RBC 3.18 L (3.80-5.40) m/uL Hgb 10.8 L (11.4-16.0) gm/dL Hct 29.9 L (34.0-46.0) % MCV 93.9 (80.0-100.0) fL MCH 33.9 (25.0-35.0) pg MCHC 36.1 (31.0-37.0) g/dL RDW 12.6 (11.5-15.5) % Plt Count 184 (150-450) k/uL MPV 7.8 Neutrophils % 77 % Lymphocytes % 15 % Monocytes % 5 % Eosinophils % 2 % Basophils % 0 % Neutrophils # 5.0 (1.3-7.7) k/uL Lymphocytes # 1.0 (1.0-4.8) k/uL Monocytes # 0.3 (0-1.0) k/uL Eosinophils # 0.1 (0-0.7) k/uL Basophils # 0.0 (0-0.2) k/uL Sodium 135 L (137-145) mmol/L Potassium 3.6 (3.5-5.1) mmol/L Chloride 105 (98-107) mmol/L Carbon Dioxide 18 L (22-30) mmol/L Anion Gap 12 mmol/L BUN 6 L (7-17) mg/dL Creatinine 0.50 L (0.52-1.04) mg/dL Est GFR (CKD-EPI)AfAm >90 (>60 ml/min/1.73 sqM) Est GFR (CKD-EPI)NonAf >90 (>60 ml/min/1.73 sqM) Glucose 94 (74-99) mg/dL Calcium 8.7 (8.4-10.2) mg/dL Total Bilirubin 0.5 (0.2-1.3) mg/dL AST 35 (14-36) U/L ALT 32 (4-34) U/L Alkaline Phosphatase 70 (38-126) U/L Total Protein 6.0 L (6.3-8.2) g/dL Albumin 3.4 L (3.5-5.0) g/dL Urine Color Light Yellow Urine Appearance Clear (Clear) Urine pH 7.0 (5.0-8.0) Ur Specific [place] 1.014 (1.001-1.035) Urine Protein Negative (Negative) Urine Glucose (UA) Negative (Negative) Urine Ketones Negative (Negative) Urine Blood Negative (Negative) Urine Nitrite Negative (Negative) Urine Bilirubin Negative (Negative) Urine Urobilinogen <2.0 (<2.0) mg/dL Ur Leukocyte Esterase Moderate H (Negative) Urine RBC 1 (0-5) /hpf Urine WBC 1 (0-5) /hpf Ur Squamous Epith Cells 3 (0-4) /hpf Urine Bacteria Rare H (None) /hpf Urine Mucus Occasional H (None) /hpf Influenza Type A (PCR) (Not Detectd) Influenza Type B (PCR) (Not Detectd) RSV (PCR) (Not Detectd) SARS-CoV-2 (PCR) (Not Detectd) 08/15/23 Range/Units 21:04 WBC (3.8-10.6) k/uL RBC (3.80-5.40) m/uL Hgb (11.4-16.0) gm/dL Hct (34.0-46.0) % MCV (80.0-100.0) fL MCH (25.0-35.0) pg MCHC (31.0-37.0) g/dL RDW (11.5-15.5) % Plt Count (150-450) k/uL MPV Neutrophils % % Lymphocytes % % Monocytes % % Eosinophils % % Basophils % % Neutrophils # (1.3-7.7) k/uL Lymphocytes # (1.0-4.8) k/uL Monocytes # (0-1.0) k/uL Eosinophils # (0-0.7) k/uL Basophils # (0-0.2) k/uL Sodium (137-145) mmol/L Potassium (3.5-5.1) mmol/L Chloride (98-107) mmol/L Carbon Dioxide (22-30) mmol/L Anion Gap mmol/L BUN (7-17) mg/dL Creatinine (0.52-1.04) mg/dL Est GFR (CKD-EPI)AfAm (>60 ml/min/1.73 sqM) Est GFR (CKD-EPI)NonAf (>60 ml/min/1.73 sqM) Glucose (74-99) mg/dL Calcium (8.4-10.2) mg/dL Total Bilirubin (0.2-1.3) mg/dL AST (14-36) U/L ALT (4-34) U/L Alkaline Phosphatase (38-126) U/L Total Protein (6.3-8.2) g/dL Albumin (3.5-5.0) g/dL Urine Color Urine Appearance (Clear) Urine pH (5.0-8.0) Ur Specific [place] (1.001-1.035) Urine Protein (Negative) Urine Glucose (UA) (Negative) Urine Ketones (Negative) Urine Blood (Negative) Urine Nitrite (Negative) Urine Bilirubin (Negative) Urine Urobilinogen (<2.0) mg/dL Ur Leukocyte Esterase (Negative) Urine RBC (0-5) /hpf Urine WBC (0-5) /hpf Ur Squamous Epith Cells (0-4) /hpf Urine Bacteria (None) /hpf Urine Mucus (None) /hpf Influenza Type A (PCR) Not Detected (Not Detectd) Influenza Type B (PCR) Not Detected (Not Detectd) RSV (PCR) Not Detected (Not Detectd) SARS-CoV-2 (PCR) Detected A (Not Detectd) Disposition Clinical Impression: COVID Disposition: HOME SELF-CARE Condition: Stable Additional Instructions: Please take antiviral as prescribed Follow Up with primary care and CHARGEMASTER ANALYST within 1-2 days Please return to the nearest emergency department with high fever, difficulty in breathing developed Prescriptions: Nirmatrelvir/Ritonavir [Paxlovid 2X150 mg-100 mg (Eua)] See Rx Instructions .ROUTE .COMPLEX #30 tab Is patient prescribed a controlled substance at d/c from ED?: No Referrals: Dean Hunt MD [Primary Care Provider] - 1-2 days Time of Disposition: 22:42
[2023-08-15 23:19] VITALS: BP 108/69; PULSE 91; RESP 18; TEMP 98.3
== END 2023-08-15 23:35 | disposition home or self-care (01) ==
LOC: EC 18:31
DX: O98.512 Other viral diseases complicating pregnancy, second trimester (principal); U07.1 COVID-19; O99.512 Diseases of the respiratory system complicating pregnancy, second trimester; J45.909 Unspecified asthma, uncomplicated; Z86.59 Personal history of other mental and behavioral disorders; Z91.048 Other nonmedicinal substance allergy status; Z3A.23 23 weeks gestation of pregnancy
CPT/HCPCS: 36415; 80053; 81001; 85025; 87636; 96360; 99283

== ENCOUNTER 2023-08-23 10:00 | Outpatient (CLI) | payer BC, OTHER ==
[2023-08-23 10:53] LABS: Appearance,Urine Cloudy (Clear); Bacteria,Urine Occasional /hpf; Bilirubin,Urine Negative (Negative); Blood,Urine Negative (Negative); Color,Urine Yellow; Glucose,Urine (UA) Negative (Negative); Ketones,Urine Negative (Negative); Leukocyte Esterase,Urine Large (Negative); Mucus,Urine Few /hpf; Nitrite,Urine Negative (Negative); Protein,Urine Negative (Negative); RBC,Urine 1 /hpf (0-5); Specific Gravity,Urine 1.019 (1.001-1.035); Squamous Epithelial Cell,Urine 4 /hpf (0-4); Urobilinogen,Urine <2.0 mg/dL (<2.0); WBC,Urine 6 /hpf (0-5)
[2023-08-23 11:47] VITALS: BP 111/74; PULSE 86; RESP 16; TEMP 97.9
--- NOTE | 2023-09-13 13:34 | P.MSEPDOC ---
Presenting Problems - Arrival Data Date of Arrival on Unit: 08/23/23 Time of Arrival on Unit: 10:00 Mode of Transport: Ambulatory - Complaint OB-Reason for Admission/Chief Complaint: Pain Comment: abd pain and cramping since 020, spotting after voiding Medical History - Information : 1 Para: 0 Term: 0 : 0 Abortions: Spontaneous or Elective: 0 Number of Living Children: 0 - Gestational Age Gestational Age by MARTHA (wks/days): 23 Weeks and 6 Days Review of Systems - Review of Systems Constitutional: No problems Breast: No problems ENT: No problems Cardiovascular: No problems Respiratory: No problems Gastrointestinal: No problems Genitourinary: No problems Musculoskeletal: No problems Neurological: No problems Skin: No problems Vital Signs - Temperature Temperature: 97.9 F Temperature Source: Temporal Artery Scan - Pulse Right Sitting Pulse Rate: 86 Pulse Assessment Method: Automatic Cuff - Respirations Respiratory Rate: 16 Oxygen Delivery Method: Room Air - Blood Pressure Right Arm Blood Pressure: 111/74 Blood Pressure Mean: 86 Blood Pressure Source: Automatic Cuff Medical Screen Scoring - Assessment - Baby A Baseline FHR: 150 Heart Rate - NICHD Category: Category I (Normal) NST: Reactive Physician Notification - Physician Notified Physician Notified Date: 08/23/23 Physician Notified Time: 11:08 Physician: Yelitza Castillo New Order Received: Yes (d/c home) Maternal Triage Index - Non-Urgent/Priority 4 Non-Urgent Priority 4: Yes Criteria Met for Priority 4: reassuring fht, no contractions on monitor Disposition - Disposition OB Disposition: Discharge to home, Written follow up instructions reviewed Discharge Date: 08/23/23 Discharge Time: 11:17 I agree with the RN Medical Screening Exam: Yes Case reviewed; plan agreed upon as documented in EMR&OBIX.: Yes Diagnosis: RELATED CONDITIONS, UNSPECIFIED, SECOND TRIMESTER
== END 2023-08-23 11:17 | disposition home or self-care (01) ==
LOC: FBPOP 10:00
PROVIDERS: ATTEND Obstetrics & Gynecology Obstetrics
DX: O26.852 Spotting complicating pregnancy, second trimester (principal); O26.892 Other specified pregnancy related conditions, second trimester; R10.9 Unspecified abdominal pain; O99.333 Smoking (tobacco) complicating pregnancy, third trimester; F17.200 Nicotine dependence, unspecified, uncomplicated; Z3A.23 23 weeks gestation of pregnancy; Z91.048 Other nonmedicinal substance allergy status
CPT/HCPCS: 81001; 99213

== ENCOUNTER 2023-10-03 15:02 | Outpatient (CLI) | payer BC, OTHER ==
[2023-10-03 16:10] LABS: Appearance,Urine Clear (Clear); Bilirubin,Urine Negative (Negative); Blood,Urine Negative (Negative); Color,Urine Yellow; Glucose,Urine (UA) Negative (Negative); Ketones,Urine Negative (Negative); Leukocyte Esterase,Urine Trace (Negative); Mucus,Urine Few /hpf; Nitrite,Urine Negative (Negative); PH, Urine 6.5 (5.0-8.0); Protein,Urine Trace (Negative); RBC,Urine 1 /hpf (0-5); Specific Gravity,Urine 1.022 (1.001-1.035); Squamous Epithelial Cell,Urine 1 /hpf (0-4); Urobilinogen,Urine <2.0 mg/dL (<2.0); WBC,Urine 3 /hpf (0-5)
[2023-10-03 16:41] VITALS: BP 104/63; PULSE 100; RESP 16; TEMP 96.6
--- NOTE | 2023-11-22 18:13 | P.MSEPDOC ---
Presenting Problems - Arrival Data Date of Arrival on Unit: 10/03/23 Time of Arrival on Unit: 15:00 Mode of Transport: Ambulatory - Complaint OB-Reason for Admission/Chief Complaint: Possible Onset of Labor Comment: Pt states contractions since 729-back and pelvic pain Medical History - Information : 1 Para: 0 - Gestational Age Gestational Age by MARTHA (wks/days): 29 Weeks and 5 Days Review of Systems - Review of Systems Constitutional: No problems Breast: No problems ENT: No problems Cardiovascular: No problems Respiratory: No problems Gastrointestinal: No problems Genitourinary: No problems Musculoskeletal: No problems Neurological: No problems Skin: No problems Vital Signs - Temperature Temperature: 96.6 F Temperature Source: Temporal Artery Scan - Pulse Right Sitting Brachial Pulse Rate: 100 Pulse Assessment Method: Automatic Cuff - Respirations Respiratory Rate: 16 Oxygen Delivery Method: Room Air O2 Sat by Pulse Oximetry: 98 - Blood Pressure Right Arm Sitting Blood Pressure: 104/63 Blood Pressure Mean: 76 Blood Pressure Source: Automatic Cuff Medical Screen Scoring - Cervical Exam Dilation (cm): 0 Effacement (%): 0 - Assessment - Baby A Baseline FHR: 130 Heart Rate - NICHD Category: Category I (Normal) NST: Reactive Physician Notification - Physician Notified Physician Notified Date: 10/03/23 Physician Notified Time: 16:20 Physician: Yelitza Castillo New Order Received: Yes - Notification Comment Comment: Spk c\Dr. Castillo, advsd , 29 6/7, c/o contractions at work, back pain and pelvic pain, SVE closed/thick/floating; Cat 1 EFM, reactive NST. No contractions. UA sent r/t pt complaints, results reviewed. Order rec'd to d/c home, follow up as scheduled. Maternal Triage Index - Stat/Priority 1 Stat Priority 1: No - Urgent/Priority 2 Urgent Priority 2: Yes Provider Notified: Yelitza Castillo Provider Notified Time: 16:20 Criteria Met for Priority 2: Pts report of contractions since 729 - Prompt/Priority 3 Prompt Priority 3: No - Non-Urgent/Priority 4 Non-Urgent Priority 4: No Disposition - Disposition OB Disposition: Discharge to home, Written follow up instructions reviewed Discharge Date: 10/03/23 Discharge Time: 16:35 I agree with the RN Medical Screening Exam: Yes Case reviewed; plan agreed upon as documented in EMR&OBIX.: Yes Diagnosis: FALSE LABOR BEFORE 37 COMPLETED WEEKS OF GEST, THIRD TRI
== END 2023-10-03 16:30 | disposition home or self-care (01) ==
LOC: FBPOP 15:02
PROVIDERS: ATTEND Obstetrics & Gynecology Obstetrics
DX: Z53.9 Procedure and treatment not carried out, unspecified reason (principal)
CPT/HCPCS: 59025; 81001; 99213

== ENCOUNTER 2023-10-30 14:53 | Outpatient (CLI) | payer BC, OTHER ==
[2023-10-30 16:20] VITALS: BP 102/63; PULSE 94; RESP 18; TEMP 97.5
--- NOTE | 2023-11-22 18:24 | P.MSEPDOC ---
Presenting Problems - Arrival Data Date of Arrival on Unit: 10/30/23 Time of Arrival on Unit: 14:53 Mode of Transport: Ambulatory - Complaint OB-Reason for Admission/Chief Complaint: Rule Out SROM Comment: leaking/discharge since this morning at 0500 Medical History - Information : 1 Para: 0 Term: 0 : 0 Abortions: Spontaneous or Elective: 0 Number of Living Children: 0 - Gestational Age Gestational Age by MARTHA (wks/days): 33 Weeks and 4 Days Review of Systems - Review of Systems Constitutional: No problems Breast: No problems ENT: No problems Cardiovascular: No problems Respiratory: No problems Gastrointestinal: No problems Genitourinary: No problems Musculoskeletal: No problems Neurological: No problems Skin: No problems Vital Signs - Temperature Temperature: 97.5 F Temperature Source: Oral - Pulse Right Pulse Oximetery Pulse Rate: 94 Pulse Assessment Method: Pulse Oximetry - Respirations Respiratory Rate: 18 Oxygen Delivery Method: Room Air O2 Sat by Pulse Oximetry: 98 - Blood Pressure Right Arm Blood Pressure: 102/63 Blood Pressure Mean: 76 Blood Pressure Source: Automatic Cuff Medical Screen Scoring - Cervical Exam Dilation (cm): 0 Effacement (%): 0 Station: -3 Membranes: Intact - Uterine Contractions Frequency From (mins): 0 Frequency To (mins): 0 Duration From (seconds): 0 Duration To (seconds): 0 Intensity: Mild Resting: Soft to palpation - Assessment - Baby A Baseline FHR: 1 Heart Rate - NICHD Category: Category I (Normal) NST: Reactive Physician Notification - Physician Notified Physician Notified Date: 10/30/23 Physician Notified Time: 15:47 Physician: Carmen Voss New Order Received: Yes (Discharge home) Maternal Triage Index - Maternal Triage Index Presenting for scheduled procedure w/no complaint: No - Stat/Priority 1 Stat Priority 1: No - Urgent/Priority 2 Urgent Priority 2: Yes Provider Notified: Carmen Voss Provider Notified Time: 15:47 Criteria Met for Priority 2: Complaints of possible SROM Disposition - Disposition OB Disposition: Discharge to home Discharge Date: 10/30/23 Discharge Time: 16:00 I agree with the RN Medical Screening Exam: Yes Case reviewed; plan agreed upon as documented in EMR&OBIX.: Yes Diagnosis: FALSE LABOR BEFORE 37 COMPLETED WEEKS OF GEST, THIRD TRI
== END 2023-10-30 16:00 | disposition home or self-care (01) ==
LOC: FBPOP 14:53
PROVIDERS: ATTEND Obstetrics & Gynecology Obstetrics
DX: O47.03 False labor before 37 completed weeks of gestation, third trimester (principal); O99.333 Smoking (tobacco) complicating pregnancy, third trimester; F17.200 Nicotine dependence, unspecified, uncomplicated; Z91.048 Other nonmedicinal substance allergy status; Z3A.33 33 weeks gestation of pregnancy
CPT/HCPCS: 59025; 99213

== ENCOUNTER 2023-11-05 09:52 | Emergency (ER) | payer BC, OTHER ==
[2023-11-05 10:09] VITALS: TEMP 98.1
[2023-11-05] MEDS: ONDANSETRON 4 MG/2 ML VIAL IVP STA (10:30)
[2023-11-05] MEDS: SODIUM CHLORIDE 0.9% 2,000 ML IV STA (10:30)
[2023-11-05] MEDS: diphenhydrAMINE 50 MG/ML 1 ML VIAL IVP STA (10:35)
[2023-11-05 10:44] LABS: Basophils % (A) 0 %; Eosinophils % (A) 0 %; HCT 32.2 % (34.0-46.0); HGB 10.9 gm/dL (11.4-16.0); Lymphocytes # (A) 0.4 k/uL (1.0-4.8); Lymphocytes % (A) 4 %; MCH 31.5 pg (25.0-35.0); MCHC 33.9 g/dL (31.0-37.0); MCV 93.1 fL (80.0-100.0); Mean Platelet Volume 8.4; Monocytes # (A) 0.3 k/uL (0-1.0); Monocytes % (A) 3 %; Neutrophils # (A) 8.6 k/uL (1.3-7.7); Neutrophils % (A) 92 %; Platelet Count 194 k/uL (150-450); Poikilocytosis Slight; RBC 3.46 m/uL (3.80-5.40); RDW 13.2 % (11.5-15.5); WBC 9.4 k/uL (3.8-10.6)
[2023-11-05 10:52] LABS: Appearance,Urine Cloudy (Clear); Bacteria,Urine Rare /hpf; Bilirubin,Urine Negative (Negative); Blood,Urine Negative (Negative); Color,Urine Yellow; Glucose,Urine (UA) Negative (Negative); Ketones,Urine Trace (Negative); Leukocyte Esterase,Urine Moderate (Negative); Mucus,Urine Few /hpf; Nitrite,Urine Negative (Negative); Protein,Urine Trace (Negative); RBC,Urine 1 /hpf (0-5); Specific Gravity,Urine 1.021 (1.001-1.035); Squamous Epithelial Cell,Urine 4 /hpf (0-4); Urobilinogen,Urine <2.0 mg/dL (<2.0); WBC,Urine 2 /hpf (0-5)
--- NOTE | 2023-11-05 10:54 | ED ---
Nausea/Vomiting/Diarrhea HPI - General Chief complaint: Nausea/Vomiting/Diarrhea Stated complaint: N/V/D 34Wks Preg Time Seen by Provider: 11/05/23 10:04 Source: patient, RN notes reviewed Mode of arrival: ambulatory Limitations: no limitations - History of Present Illness Initial comments: This is a 23-year-old female who presents to the emergency department for nausea, vomiting, and diarrhea. Symptoms started yesterday. Patient is 34 weeks . Reports regular movement and denies any abdominal pain or vaginal bleeding. States that influenza is going around her workplace and believes that she may have contracted it. She does have some upper respiratory symptoms. Denies any fever/chills. MD complaint: nausea, vomiting - Related Data Home Medications Medication Instructions Recorded Confirmed Xwl-Hgjv-Nicry Acid 1 cap PO DAILY 05/05/23 10/30/23 [-U Capsule] busPIRone HCL 10 mg PO DAILY 08/23/23 10/30/23 Aspirin 81 mg PO DAILY 10/03/23 10/30/23 Previous Rx's Medication Instructions Recorded Ondansetron Odt [Zofran Odt] 4 mg PO Q8HR PRN #20 tab 11/05/23 Allergies Allergy/AdvReac Type Severity Reaction Status Date / Time adhesive tape Allergy Unknown Verified 11/05/23 10:02 Review of Systems ROS Statement: Those systems with pertinent positive or pertinent negative responses have been documented in the HPI. ROS Other: All systems not noted in ROS Statement are negative. Past Medical History Past Medical History: Asthma History of Any Multi-Drug Resistant Organisms: None Reported Past Surgical History: Adenoidectomy, Tonsillectomy Additional Past Surgical History / Comment(s): Kan[place] teeth exposure for braces, IUD, Past Anesthesia/Blood Transfusion Reactions: No Reported Reaction Past Psychological History: Anxiety, Depression Smoking Status: Never smoker Past Alcohol Use History: None Reported Past Drug Use History: None Reported - Past Family History Mother Family Medical History: No Reported History Father Additional Family Medical History / Comment(s): colon cancer General Exam Limitations: no limitations General appearance: alert, in no apparent distress Head exam: Present: atraumatic, normocephalic, normal inspection Respiratory exam: Present: normal lung sounds bilaterally. Absent: respiratory distress, wheezes, rales, rhonchi, stridor Cardiovascular Exam: Present: regular rate, normal rhythm, normal heart sounds. Absent: systolic murmur, diastolic murmur, rubs, gallop, clicks Neurological exam: Present: alert, oriented X3, CN II-XII intact Psychiatric exam: Present: normal affect, normal mood Skin exam: Present: warm, dry, intact, normal color. Absent: rash Course Vital Signs 11/05/23 11/05/23 10:00 12:43 Temperature 98.1 F Pulse Rate 100 97 Respiratory 22 16 Rate Blood Pressure 153/89 101/54 O2 Sat by Pulse 99 99 Oximetry Medical Decision Making - Medical Decision Making This is a 23 year old female who presents to the emergency department for nausea and vomiting in . Was pt. sent in by a medical professional or institution? @ -No Did you speak to anyone other than the patient for history? @ -No Did you review nursing and triage notes? @ -Yes, and I agree, it is accurate with regards to the patient's symptoms. Were old charts reviewed? @ -No Differential Diagnosis? @ -Differential Nausea and Vomiting: Gastroenteritis, cholecystitis, appendicitis, pancreatitis, migraine, benign positional vertigo, food borne illness, pyelonephritis, irritable bowel syndrome, influenza, Covid, GERD, incarcerated hernia, intestinal obstruction, this is not meant to be an all-inclusive list. EKG interpreted by me (3pts min.)? @ -Not obtained X-rays interpreted by me (1pt min.)? @ -Not obtained CT interpreted by me (1pt min.)? @ -Not obtained U/S interpreted by me (1pt. min.)? @ -Not obtained What testing was considered but not performed? (CT, X-rays, U/S, labs)? Why? @ -None What meds were considered but not given? Why? @ -None Did you discuss the management of the patient with other professionals? @ -No Did you reconcile home meds? @ -No Was smoking cessation discussed for >3mins.? @ -I discussed smoking cessation for greater than 3 minutes. The risk of smoking were discussed with the patient including but not limited to risks of cancer, stroke, coronary artery disease and COPD. Also discussed with patient were multiple methods of quitting smoking. Lastly we discussed the financial cost of smoking. Was critical care preformed (if so, how long)? @ -No Were there social determinants of health that impacted care today? How? (Homelessness, low income, unemployed, alcoholism, drug addiction, transportation, low edu. Level, literacy, decrease access to med. care, long-term, rehab)? @ -No Was there de-escalation of care discussed even if they declined? (Discuss DNR or withdrawal of care, Hospice)? @ -No What co-morbidities impacted this encounter? (DM, HTN, Smoking, COPD, CAD, Cancer, CVA, Hep., AIDS, mental health diagnosis, sleep apnea, morbid obesity)? @ -, smoking Was patient admitted / discharged? @ -Discharged. Lab work fairly unremarkable. COVID, influenza, and RSV testing were negative. Urinalysis not suggestive of infection, but was sent for culture. Patient given IV fluids and Zofran with improvement in symptoms. She was tolerating oral intake afterwards without any difficulty. PROJECT MANAGEMENT MANAGER nurses came to auscultate heart tones and they were found to be around 165 bpm. Rx for Zofran provided with dosing instructions reviewed. Advised she slowly advance her diet as tolerated and remain well hydrated. Patient discharged from our end, but will go upstairs to mother baby in the event they want to do an NST or any additional testing. Undiagnosed new problem with uncertain prognosis? @ -None Drug Therapy requiring intensive monitoring for toxicity (Heparin, Nitro, Insulin, Cardizem)? @ -None Were any procedures done? @ -None Diagnosis/symptom? @ -Nausea and vomiting Acute, or Chronic, or Acute on Chronic? @ -Acute Uncomplicated (without systemic symptoms) or Complicated (systemic symptoms)? @ -Uncomplicated Side effects of treatment? @ -None Exacerbation, Progression, or Severe Exacerbation] @ -Not applicable Poses a threat to life or bodily function? @ -No Return precautions reviewed in depth, the patient is instructed to return to the emergency department with any new, worsening, or concerning symptoms. Patient verbalized understanding. This case was discussed in detail with the attending ED physician, Dr. Pavon. Presentation, findings, and treatment plan discussed in detail as well. - Lab Data Result diagrams: 11/05/23 10:34 11/05/23 10:34 Lab Results 11/05/23 11/05/23 11/05/23 Range/Units 10:34 10:34 10:34 WBC 9.4 (3.8-10.6) k/uL RBC 3.46 L (3.80-5.40) m/uL Hgb 10.9 L (11.4-16.0) gm/dL Hct 32.2 L (34.0-46.0) % MCV 93.1 (80.0-100.0) fL MCH 31.5 (25.0-35.0) pg MCHC 33.9 (31.0-37.0) g/dL RDW 13.2 (11.5-15.5) % Plt Count 194 (150-450) k/uL MPV 8.4 Neutrophils % 92 % Lymphocytes % 4 % Monocytes % 3 % Eosinophils % 0 % Basophils % 0 % Neutrophils # 8.6 H (1.3-7.7) k/uL Lymphocytes # 0.4 L (1.0-4.8) k/uL Monocytes # 0.3 (0-1.0) k/uL Eosinophils # 0.0 (0-0.7) k/uL Basophils # 0.0 (0-0.2) k/uL Poikilocytosis Slight Sodium 135 L (137-145) mmol/L Potassium 3.8 (3.5-5.1) mmol/L Chloride 108 H (98-107) mmol/L Carbon Dioxide 19 L (22-30) mmol/L Anion Gap 8 mmol/L BUN 8 (7-17) mg/dL Creatinine 0.47 L (0.52-1.04) mg/dL Est GFR (CKD-EPI)AfAm >90 (>60 ml/min/1.73 sqM) Est GFR (CKD-EPI)NonAf >90 (>60 ml/min/1.73 sqM) Glucose 90 (74-99) mg/dL Calcium 8.2 L (8.4-10.2) mg/dL Total Bilirubin 0.9 (0.2-1.3) mg/dL AST 21 (14-36) U/L ALT 14 (4-34) U/L Alkaline Phosphatase 159 H (38-126) U/L Total Protein 6.3 (6.3-8.2) g/dL Albumin 3.5 (3.5-5.0) g/dL Amylase 69 (30-110) U/L Lipase 68 (23-300) U/L HCG, Quant 88738.4 mIU/mL Urine Color Yellow Urine Appearance Cloudy H (Clear) Urine pH 7.0 (5.0-8.0) Ur Specific [place] 1.021 (1.001-1.035) Urine Protein Trace H (Negative) Urine Glucose (UA) Negative (Negative) Urine Ketones Trace H (Negative) Urine Blood Negative (Negative) Urine Nitrite Negative (Negative) Urine Bilirubin Negative (Negative) Urine Urobilinogen <2.0 (<2.0) mg/dL Ur Leukocyte Esterase Moderate H (Negative) Urine RBC 1 (0-5) /hpf Urine WBC 2 (0-5) /hpf Ur Squamous Epith Cells 4 (0-4) /hpf Urine Bacteria Rare H (None) /hpf Urine Mucus Few H (None) /hpf Influenza Type A (PCR) (Not Detectd) Influenza Type B (PCR) (Not Detectd) RSV (PCR) (Not Detectd) SARS-CoV-2 (PCR) (Not Detectd) 11/05/23 Range/Units 10:34 WBC (3.8-10.6) k/uL RBC (3.80-5.40) m/uL Hgb (11.4-16.0) gm/dL Hct (34.0-46.0) % MCV (80.0-100.0) fL MCH (25.0-35.0) pg MCHC (31.0-37.0) g/dL RDW (11.5-15.5) % Plt Count (150-450) k/uL MPV Neutrophils % % Lymphocytes % % Monocytes % % Eosinophils % % Basophils % % Neutrophils # (1.3-7.7) k/uL Lymphocytes # (1.0-4.8) k/uL Monocytes # (0-1.0) k/uL Eosinophils # (0-0.7) k/uL Basophils # (0-0.2) k/uL Poikilocytosis Sodium (137-145) mmol/L Potassium (3.5-5.1) mmol/L Chloride (98-107) mmol/L Carbon Dioxide (22-30) mmol/L Anion Gap mmol/L BUN (7-17) mg/dL Creatinine (0.52-1.04) mg/dL Est GFR (CKD-EPI)AfAm (>60 ml/min/1.73 sqM) Est GFR (CKD-EPI)NonAf (>60 ml/min/1.73 sqM) Glucose (74-99) mg/dL Calcium (8.4-10.2) mg/dL Total Bilirubin (0.2-1.3) mg/dL AST (14-36) U/L ALT (4-34) U/L Alkaline Phosphatase (38-126) U/L Total Protein (6.3-8.2) g/dL Albumin (3.5-5.0) g/dL Amylase (30-110) U/L Lipase (23-300) U/L HCG, Quant mIU/mL Urine Color Urine Appearance (Clear) Urine pH (5.0-8.0) Ur Specific [place] (1.001-1.035) Urine Protein (Negative) Urine Glucose (UA) (Negative) Urine Ketones (Negative) Urine Blood (Negative) Urine Nitrite (Negative) Urine Bilirubin (Negative) Urine Urobilinogen (<2.0) mg/dL Ur Leukocyte Esterase (Negative) Urine RBC (0-5) /hpf Urine WBC (0-5) /hpf Ur Squamous Epith Cells (0-4) /hpf Urine Bacteria (None) /hpf Urine Mucus (None) /hpf Influenza Type A (PCR) Not Detected (Not Detectd) Influenza Type B (PCR) Not Detected (Not Detectd) RSV (PCR) Not Detected (Not Detectd) SARS-CoV-2 (PCR) Not Detected (Not Detectd) Disposition Clinical Impression: Nausea and vomiting, Nicotine dependence Disposition: HOME SELF-CARE Instructions (If sedation given, give patient instructions): Acute Nausea and Vomiting (ED) Additional Instructions: Return to the emergency department with any new, worsening, or concerning symptoms. You can take the Zofran up to every 8 hours as needed for nausea and vomiting. Slowly advance your diet as tolerated and remain well-hydrated. Follow up with your primary care provider in 1-2 days and with your PROJECT MANAGEMENT MANAGER. Prescriptions: Ondansetron Odt [Zofran Odt] 4 mg PO Q8HR PRN #20 tab PRN Reason: Nausea And Vomiting Is patient prescribed a controlled substance at d/c from ED?: No Referrals: Dean Hunt MD [Primary Care Provider] - 1-2 days Time of Disposition: 12:31
[2023-11-05 11:03] LABS: ALT 14 U/L (4-34); AST 21 U/L (14-36); African American GFR (CKD) >90 (>60 ml/min/1.73 sqM); Albumin 3.5 g/dL (3.5-5.0); Alkaline Phosphatase 159 U/L (38-126); Amylase 69 U/L (30-110); Anion Gap 8 mmol/L; Blood Urea Nitrogen 8 mg/dL (7-17); Calcium 8.2 mg/dL (8.4-10.2); Carbon Dioxide 19 mmol/L (22-30); Chloride 108 mmol/L (98-107); Glucose 90 mg/dL (74-99); Lipase 68 U/L (23-300); Non-African American GFR(CKD) >90 (>60 ml/min/1.73 sqM); Potassium 3.8 mmol/L (3.5-5.1); Sodium 135 mmol/L (137-145); Total Bilirubin 0.9 mg/dL (0.2-1.3); Total Protein 6.3 g/dL (6.3-8.2)
[2023-11-05 11:20] LABS: HCG,Quantitative Serum 10688.4 mIU/mL
[2023-11-05] MEDS: PROCHLORPERAZINE INJ 10 MG/2 ML VIAL IVP STA (11:43)
[2023-11-05] MEDS: ONDANSETRON 4 MG ODT STARTER PACK 2 TAB BTL PO STA (12:35)
[2023-11-05 13:04] VITALS: BP 101/54; PULSE 97; RESP 16
== END 2023-11-05 12:44 | disposition home or self-care (01) ==
LOC: EC 09:52
DX: O21.9 Vomiting of pregnancy, unspecified (principal); O99.333 Smoking (tobacco) complicating pregnancy, third trimester; F17.200 Nicotine dependence, unspecified, uncomplicated; Z91.048 Other nonmedicinal substance allergy status; Z3A.34 34 weeks gestation of pregnancy
CPT/HCPCS: 36415; 80053; 82150; 83690; 85025; 81001; 84702; 87636; 99406; 99284; 96374; 96375; 96361; J0780; J2405; S0119

== ENCOUNTER 2023-12-03 07:29 | Outpatient (CLI) | payer BC, OTHER ==
[2023-12-03 08:34] VITALS: BP 120/69; PULSE 74; RESP 16; TEMP 97.4
--- NOTE | 2023-12-04 08:21 | P.MSEPDOC ---
Presenting Problems - Arrival Data Date of Arrival on Unit: 12/03/23 Time of Arrival on Unit: 07:29 Mode of Transport: Ambulatory - Complaint OB-Reason for Admission/Chief Complaint: Pain Comment: constant low back pain Medical History - Information : 1 Para: 0 Term: 0 : 0 Abortions: Spontaneous or Elective: 0 Number of Living Children: 0 - Gestational Age Gestational Age by MARTHA (wks/days): 38 Weeks and 3 Days Review of Systems - Review of Systems Constitutional: No problems Breast: No problems ENT: No problems Cardiovascular: No problems Respiratory: No problems Gastrointestinal: No problems Genitourinary: No problems Musculoskeletal: No problems Neurological: No problems Skin: No problems Vital Signs - Temperature Temperature: 97.4 F Temperature Source: Temporal Artery Scan - Pulse Pulse Oximetery Pulse Rate: 74 Pulse Assessment Method: Pulse Oximetry - Respirations Respiratory Rate: 16 Oxygen Delivery Method: Room Air O2 Sat by Pulse Oximetry: 98 - Blood Pressure Right Arm Blood Pressure: 120/69 Blood Pressure Mean: 86 Blood Pressure Source: Automatic Cuff Medical Screen Scoring - Cervical Exam Dilation (cm): 0.5 Effacement (%): 0 Station: -3 - Uterine Contractions Intensity: Mild Resting: Soft to palpation - Assessment - Baby A Baseline FHR: 145 Heart Rate - NICHD Category: Category I (Normal) NST: Reactive Physician Notification - Physician Notified Physician Notified Date: 12/03/23 Physician Notified Time: 08:09 Physician: Yasmeen Negrete Order Received: Yes - Notification Comment Comment: Dr. Negrete called, report given on maternal complaints of constant back pain (with some occassional increase on the left side), pt has no urinary symptoms/tenderness/history, irregular contractions, SVE fingertip/thick, NST is reactive. Urine collected but not sent. Per MD, do not send UA if pt has no symptoms and pt can be discharged home. Maternal Triage Index - Maternal Triage Index Presenting for scheduled procedure w/no complaint: No - Stat/Priority 1 Stat Priority 1: No - Urgent/Priority 2 Urgent Priority 2: No - Prompt/Priority 3 Prompt Priority 3: No - Non-Urgent/Priority 4 Non-Urgent Priority 4: Yes Criteria Met for Priority 4: 38 3/7wks, constant low back pain Disposition - Disposition OB Disposition: Discharge to home Discharge Date: 12/03/23 Discharge Time: 08:20 I agree with the RN Medical Screening Exam: Yes Case reviewed; plan agreed upon as documented in EMR&OBIX.: Yes Diagnosis: LOW BACK PAIN, UNSPECIFIED
== END 2023-12-03 08:20 | disposition home or self-care (01) ==
LOC: FBPOP 07:29
PROVIDERS: ATTEND Obstetrics & Gynecology
DX: O26.893 Other specified pregnancy related conditions, third trimester (principal); M54.50 Low back pain, unspecified; O99.333 Smoking (tobacco) complicating pregnancy, third trimester; F17.200 Nicotine dependence, unspecified, uncomplicated; Z3A.38 38 weeks gestation of pregnancy; Z91.048 Other nonmedicinal substance allergy status
CPT/HCPCS: 59025; 99213

== ENCOUNTER 2023-12-14 06:02 | Inpatient (IN) | payer BC, OTHER ==
[2023-12-14] MEDS ORDERED: METHYLERGONOVINE 0.2 MG/ML 1 ML AMP IM PRN (06:17)
[2023-12-14] MEDS ORDERED: OXYTOCIN 10 UNIT/ML 1 ML VIAL IM PRN (06:17)
[2023-12-14] MEDS ORDERED: TRANEXAMIC 1,000 MG/100ML-NACL 1,000 MG in EMPTY BAG 1 BAG IV PRN (06:17)
[2023-12-14] MEDS ORDERED: miSOPROStoL 200 MCG TAB PO PRN (06:17)
[2023-12-14] MEDS ORDERED: TERBUTALINE 1 MG/ML VIAL SQ PRN (06:17)
[2023-12-14] MEDS ORDERED: CARBOPROST TROMETHAMINE 250 MCG/ML 1 ML AMP IM PRN (06:17)
[2023-12-14] MEDS: OXYTOCIN 30 UNITS/500 ML NS 30 UNIT in SALINE 1 500ML.BAG IV SCH (06:35)
[2023-12-14] MEDS: LACTATED RINGERS 1,000 ML IV SCH (06:39)
[2023-12-14 07:00] LABS: Basophils % (A) 0 %; Eosinophils # (A) 0.1 k/uL (0-0.7); Eosinophils % (A) 1 %; HGB 10.9 gm/dL (11.4-16.0); Lymphocytes # (A) 1.6 k/uL (1.0-4.8); Lymphocytes % (A) 18 %; MCH 29.8 pg (25.0-35.0); MCHC 32.9 g/dL (31.0-37.0); MCV 90.5 fL (80.0-100.0); Mean Platelet Volume 8.3; Monocytes # (A) 0.5 k/uL (0-1.0); Monocytes % (A) 6 %; Neutrophils # (A) 6.5 k/uL (1.3-7.7); Neutrophils % (A) 74 %; Platelet Count 247 k/uL (150-450); RBC 3.65 m/uL (3.80-5.40); RDW 14.2 % (11.5-15.5); WBC 8.8 k/uL (3.8-10.6)
[2023-12-14] MEDS ORDERED: fentaNYL (PF) 50 MCG/ML 5 ML AMP ONE (08:56)
[2023-12-14] MEDS ORDERED: ROPIVACAINE 5 MG/ML 30 ML VIAL ONE (08:56)
[2023-12-14] MEDS ORDERED: SODIUM CHLORIDE 0.9% 250 ML BAG ONE (08:56)
--- NOTE | 2023-12-14 12:00 | P.HPOB ---
History of Present Illness H&P Date: 12/14/23 Chief Complaint: IUP at 39 weeks, active labor 23 yo at 40 0/7 weeks that presents to labor and delivery with complaints of contractions since 1 am. Denies loss of fluid or vaginal bleeding. She has been receiving routine care with myself and has been essentially uncomplicated. blood work this patient is a blood type of Review of Systems Constitutional: Denies chills, Denies fatigue, Denies fever Ears, nose, mouth and throat: Denies headache Cardiovascular: Reports leg edema Respiratory: Denies dyspnea Gastrointestinal: Denies constipation, Denies diarrhea, Denies nausea, Denies vomiting Genitourinary: Reports Past Medical History Past Medical History: Asthma History of Any Multi-Drug Resistant Organisms: None Reported Past Surgical History: Adenoidectomy, Tonsillectomy Additional Past Surgical History / Comment(s): [place] teeth exposure for braces, IUD, Past Anesthesia/Blood Transfusion Reactions: No Reported Reaction Past Psychological History: Anxiety, Depression Additional Psychological History / Comment(s): ADD Smoking Status: Never smoker Past Alcohol Use History: None Reported Past Drug Use History: None Reported - Past Family History Mother Family Medical History: No Reported History Father Additional Family Medical History / Comment(s): colon cancer Medications and Allergies Allergies Allergy/AdvReac Type Severity Reaction Status Date / Time adhesive tape Allergy Unknown Verified 12/14/23 06:16 Exam Osteopathic Statement: *. No significant issues noted on an osteopathic structural exam other than those noted in the History and Physical/Consult. Intake and Output 12/13/23 12/14/23 12/14/23 22:59 06:59 14:59 Other: Weight 86.183 kg Targeted physical exam is performed this date General is well-nourished well- developed female in no acute distress, breathing is noted to be nonlabored, heart has a regular rate and rhythm, abdomen is gravid and appropriate for gestational age, on cervical exam she is 4/80/-2 station amniotomy was performed and clear fluid was obtained. heart tones noted be category 1, she just received an epidural. Results Result Diagrams: 12/14/23 06:29 Abnormal Lab Results - Last 24 Hours (Table) 12/14/23 Range/Units 06:29 RBC 3.65 L (3.80-5.40) m/uL Hgb 10.9 L (11.4-16.0) gm/dL Hct 33.0 L (34.0-46.0) % Assessment and Plan (1) Term Current Visit: Yes Status: Acute Code(s): Z34.90 - ENCNTR FOR SUPRVSN OF NORMAL , UNSP, UNSP TRIMESTER SNOMED Code(s): 01498767 (2) Active labor Current Visit: Yes Status: Acute Code(s): AEB8610 - SNOMED Code(s): 021397769 Plan: G1, P0 at 40-0/7 weeks presents in active labor. Patient was scheduled for induction of labor today but stated contractions started at 1 AM. Patient is admitted to labor and delivery. She is noted to be 3 cm and did request epidural prior to my arrival. Patient underwent amniotomy and clear fluid was obtained. Continue current plan, clear liquids as desired
[2023-12-14] MEDS: ROPIVACAINE 225 MG, fentaNYL (PF). 450 MCG in SODIUM CHLORIDE 0.9% 171 ML EPIDURAL ONE (12:34)
[2023-12-14] MEDS: LIDOCAINE 0.5% (PF) 5 MG/ML (50 ML SDV) SQ PRN (12:34)
[2023-12-14] MEDS ORDERED: HYDROCORTISONE 2.5% RECTAL CREAM 30 GM TUBE RECTAL PRN (12:52)
[2023-12-14] MEDS ORDERED: diphenhydrAMINE 50 MG CAP PO PRN (12:52)
[2023-12-14] MEDS ORDERED: LANOLIN CREAM 1 GM TUBE TOPICAL PRN (12:52)
[2023-12-14] MEDS ORDERED: diphenhydrAMINE 25 MG CAP PO PRN (12:52)
[2023-12-14] MEDS ORDERED: diphenhydrAMINE 50 MG/ML 1 ML VIAL IVP PRN ×2 (12:52)
[2023-12-14] MEDS ORDERED: ZOLPIDEM 5 MG TAB PO PRN (12:52)
[2023-12-14] MEDS ORDERED: BENZOCAINE/MENTHOL SPRAY 1 GM/SPRAY AEROSOL TOPICAL PRN (12:52)
[2023-12-14] MEDS ORDERED: SIMETHICONE 80 MG CHEWABLE PO PRN (12:52)
--- NOTE | 2023-12-14 12:52 | P.PROBDLV ---
Vaginal Delivery Note - . Vaginal Delivery Note: 23 yo at 40 0/7 weeks, that presents to labor and delivery in active labor. Patient states contractions started at 1 am, she was noted to be 3 cm on admission and requested epidural. Amniotomy was preformed and clear fluid was obtained. She made good progress toward complete, once completely dilated she began pushing. With good maternal effort she brought the infant down to a presentation. With continued pushing patient had a normal spontaneous vaginal delivery of a viable female , compund left hand, OA presentation at 1213, weight of 8 pounds 7 ounces, Apgars of 9 and 9 at 1 and 5 minutes respectively, after 2-minute delay the umbilical cord was doubly clamped and cut cord blood was then taken. Infant was handed to maternal abdomen. Spontaneous cry was noted at . Placenta was delivered spontaneously intact with three-vessel cord being noted. On inspection the patient's vaginal vault a midline second-degree laceration was appreciated in addition to a labial laceration on the right side. These were repaired in the usual fashion with 3-0 Rapide and 4-0 chromic respectively. Hemostasis was noted after closure. Uterus was noted to be firm below the umbilicus. Bladder was drained via red rubber catheter for approximately 100 cc of clear yellow urine. All counts were to be correct x 2 at the end of the delivery. Patient and infant tolerated delivery well and are resting comfortably.
[2023-12-14] MEDS: IBUPROFEN 600 MG TAB PO SCH (14:11)
[2023-12-14] MEDS: ACETAMINOPHEN TAB 325 MG TAB PO PRN (20:29)
[2023-12-14] MEDS: SENNOSIDES-DOCUSATE SODIUM 1 EACH TAB PO SCH (20:30)
[2023-12-14 20:46] VITALS: RESP 16
[2023-12-15 08:31] LABS: Basophils % (A) 0 %; Eosinophils # (A) 0.1 k/uL (0-0.7); Eosinophils % (A) 1 %; HCT 28.6 % (34.0-46.0); HGB 9.7 gm/dL (11.4-16.0); Lymphocytes # (A) 1.5 k/uL (1.0-4.8); Lymphocytes % (A) 17 %; MCH 31.1 pg (25.0-35.0); MCHC 34.1 g/dL (31.0-37.0); MCV 91.3 fL (80.0-100.0); Mean Platelet Volume 9.1; Monocytes # (A) 0.4 k/uL (0-1.0); Monocytes % (A) 5 %; Neutrophils # (A) 6.5 k/uL (1.3-7.7); Neutrophils % (A) 75 %; Platelet Count 179 k/uL (150-450); Poikilocytosis Slight; RBC 3.13 m/uL (3.80-5.40); RDW 14.7 % (11.5-15.5); WBC 8.6 k/uL (3.8-10.6)
[2023-12-15 09:10] VITALS: BP 102/67; PULSE 73; TEMP 98.2
--- NOTE | 2023-12-15 10:33 | P.DS ---
Providers Date of admission: 12/14/23 06:02 Expected date of discharge: 12/15/23 Attending physician: Yelitza Castillo Primary care physician: Stated None - Discharge Diagnosis(es) (1) Term Current Visit: Yes Status: Acute (2) Active labor Current Visit: Yes Status: Acute (3) Status post normal vaginal delivery Current Visit: Yes Status: Acute (4) Obstetrical laceration, second degree Current Visit: Yes Status: Acute Hospital Course: 23-year-old female 1 now para 1 that presented to labor and delivery at 40-0/7 weeks in active labor. Patient stated contractions started around 1 AM. Patient was noted to be 3 cm and a scheduled induction therefore was admitted and soon requested epidural. Once epidural was placed amniotomy was performed and clear fluid was obtained. Patient made both good progress toward complete. Once she was known to be completely dilated she began pushing and had a normal spontaneous vaginal delivery of a viable female infant, weight of 8 pounds 7 ounces, Apgars 9 and 9 at 1 and 5 minutes respectively. Patient did sustain a second-degree midline laceration and a right labial laceration. These were repaired in the usual fashion. Patient has done well . On this day #1 she is ambulating and voiding without difficulty. She is tolerating a regular diet without nausea or vomiting. States her pain is well-controlled. She denies concerns. Would like discharge home. Patient Condition at Discharge: Good Plan - Discharge Summary Follow up Appointment(s)/Referral(s): Yelitza Castillo DO [Doctor of Osteopathic Medicine] - 01/23/24 1:00 pm Patient Instructions/Handouts: Vaginal Delivery (DC), Vaginal Delivery (GEN) Discharge Disposition: HOME SELF-CARE
== END 2023-12-15 14:05 | disposition home or self-care (01) | DRG 807 ==
LOC: 4FBP 06:02
PROVIDERS: ADMIT Obstetrics & Gynecology Obstetrics; ATTEND Obstetrics & Gynecology Obstetrics
PROC: 10E0XZZ Delivery of Products of Conception, External Approach (ICD-10-PCS; principal; 2023-12-14)
PROC: 0KQM0ZZ Repair Perineum Muscle, Open Approach (ICD-10-PCS; 2023-12-14)
DX: O70.1 Second degree perineal laceration during delivery (principal); Z37.0 Single live birth; F32.A Depression, unspecified; F41.9 Anxiety disorder, unspecified; J45.909 Unspecified asthma, uncomplicated; O99.344 Other mental disorders complicating childbirth; O99.52 Diseases of the respiratory system complicating childbirth; Z3A.40 40 weeks gestation of pregnancy; Z80.0 Family history of malignant neoplasm of digestive organs
CPT/HCPCS: 85025; 86850; 86900; 86901

== ENCOUNTER 2025-03-04 10:21 | Day surgery (SDC) | payer BC, OTHER ==
[2025-02-26 15:34] VITALS: BMI 30.9
[2025-03-04] MEDS: IV FLUID CONTINUATION 1,000 ML IV ONE (10:48)
[2025-03-04 11:01] VITALS: RESP 16; TEMP 98
[2025-03-04] MEDS: LACTATED RINGERS 1,000 ML IV SCH (11:14)
[2025-03-04] MEDS ORDERED: LIDOCAINE 1% INJ 10MG/ML (20 ML MDV) ONE (12:12)
[2025-03-04] MEDS ORDERED: PROPOFOL 10 MG/ML 20 ML VIAL IV ONE (12:12)
--- NOTE | 2025-03-04 12:26 | P.PCN ---
Date of Procedure: 03/04/25 Procedure(s) Performed: BRIEF HISTORY: Patient is a 24-year-old pleasant white female scheduled for an elective colonoscopy as a part of intermittent rectal bleeding for the last 6 months duration. She has alternating diarrhea and constipation also. PROCEDURE PERFORMED: Colonoscopy with biopsy. PREOPERATIVE DIAGNOSIS: Rectal bleeding and change in bowel habits. IV sedation per Anesthesia. PROCEDURE: After informed consent was obtained, the patient, was brought into the endoscopy unit. IV sedation was administered by Anesthesia under continuous monitoring. Digital rectal examination was normal. Initially the Olympus CF-160 flexible video colonoscope was then inserted in the rectum, gradually advanced into the cecum without any difficulty. Careful examination was performed as the scope was gradually being withdrawn. Ileocecal valve and the appendiceal orifice were visualized and appeared normal. Prep was excellent. Mucosa of the cecum, ascending colon, transverse colon, descending colon, sigmoid colon, and rectum appeared normal. There was mild erythema and edema noted in the distal rectum and possibility of stroke scope trauma versus idiopathic proctitis could not be excluded and his biopsies were done from this area. Retroflexion was performed in the rectum and no lesions were seen. The patient tolerated the procedure well. IMPRESSION: Mild erythema in the distal rectum status post biopsies to rule out proctitis versus scope trauma Rest of the colon appeared normal RECOMMENDATIONS: Findings of this examination were discussed with the patient as well as the family.. She was advised to follow with the biopsy results. Follow-up in office in 2 weeks.
[2025-03-04 12:49] VITALS: BP 113/76; PULSE 77
== END 2025-03-04 13:16 | disposition home or self-care (01) ==
LOC: ORWHC2ENDO 10:21
PROVIDERS: ATTEND Internal Medicine Gastroenterology
DX: K62.5 Hemorrhage of anus and rectum (principal); K62.89 Other specified diseases of anus and rectum; J45.909 Unspecified asthma, uncomplicated; F41.9 Anxiety disorder, unspecified; F32.A Depression, unspecified; F17.290 Nicotine dependence, other tobacco product, uncomplicated; Z79.899 Other long term (current) drug therapy; Z79.51 Long term (current) use of inhaled steroids; Z90.89 Acquired absence of other organs; Z91.09 Other allergy status, other than to drugs and biological substances
CPT/HCPCS: 81025; 88305; 45380; J2003; J2704